=== PATIENT | male | born 1955 | race Caucasian/White ===

== ENCOUNTER 2017-12-20 09:47 | Inpatient (IN) | payer OTHER ==
[~2017-12-20] VITALS: Ht 177.8 cm; Wt 79.4 kg
[2017-12-20] VITALS (11 sets, daily range): BP systolic 128–151; BP diastolic 68–90; PULSE 52–80; RESP 16–20; TEMP 98–98.3; O2SAT 97–98
[~2017-12-20 09:47] MED LIST: CHOLESTEROL PILL; ENAL5TAB98 PO; NAPR550 PO; [UNRECOGNIZED DRUG - REMARK]
[2017-12-20] MEDS ORDERED: SODIUM CHLORIDE 0.9% FLUSH 10 ML FLUSH IVF PRN (10:30)
[2017-12-20 10:59] LABS: AUTOMATED NEUTROPHIL # 4.3 TH/MM3 (1.8-7.7); BASOPHIL % 0.7 % (0.0-2.0); EOSINOPHIL # 0.1 TH/MM3 (0-0.4); EOSINOPHIL % 1.9 % (0.0-4.0); HEMATOCRIT 37.8 % (39.0-51.0); HEMOGLOBIN 12.6 GM/DL (13.0-17.0); LYMPH % 16.5 % (9.0-44.0); MEAN CELL VOLUME 97.5 FL (80.0-100.0); MEAN CORPUSCULAR HEMOGLOBIN 32.6 PG (27.0-34.0); MEAN CORPUSCULAR HGB CONC 33.4 % (32.0-36.0); MEAN PLATELET VOLUME 8.5 FL (7.0-11.0); MONO % 9.3 % (0.0-8.0); MONOCYTE # 0.5 TH/MM3 (0-0.9); NEUT % 71.6 % (16.0-70.0); PLATELET COUNT 165 TH/MM3 (150-450); RED BLOOD COUNT 3.88 MIL/MM3 (4.50-5.90); RED CELL DISTRIBUTION WIDTH 13.6 % (11.6-17.2); WHITE BLOOD COUNT 5.9 TH/MM3 (4.0-11.0)
[2017-12-20] MEDS ORDERED: D-20TAB3 PO (11:02)
[2017-12-20] MEDS ORDERED: METO25TA3 PO (11:02)
[2017-12-20] MEDS ORDERED: ENTE1TAB PO (11:02)
[2017-12-20] MEDS ORDERED: LISI-519 PO (11:02)
[2017-12-20] MEDS ORDERED: SIMV40TA PO (11:02)
[2017-12-20 11:08] LABS: PROTHROMBIN TIME - PATIENT 10.4 SEC (9.8-11.6)
--- NOTE | 2017-12-20 11:24 | RADRPT ---
EXAM DATE/TIME: 12/20/2017 10:33 [place] COMPARISON: No previous studies available for comparison. INDICATIONS : Short of breath with chest pressure and pain mid sternal. MEDICAL HISTORY : Myocardial infarction. SURGICAL HISTORY : None. ENCOUNTER: Initial ACUITY: 1 day PAIN SCORE: 5/10 LOCATION: Bilateral chest FINDINGS: A single view of the chest demonstrates the lungs to be symmetrically aerated with bibasilar atelecta sis/mild airspace disease. No large effusion. Heart size is borderline prominent but well compensated . Osseous structures are intact with a mild dextroscoliosis of the thoracolumbar spine. There appears be widening of the AC joints bilaterally CONCLUSION: 1. Mild bibasilar atelectatic changes/early infiltrates. 2. Compensated cardiomegaly. 3. Widening of the a.c. joints bilaterally. Jaron Mejia MD on December 20, 2017 at 11:19 Board Certified Radiologist. This report was verified electronically.
[2017-12-20 11:26] LABS: ALBUMIN 3.4 GM/DL (3.4-5.0); ALT (GPT) 26 U/L (12-78); AST (GOT) 22 U/L (15-37); BICARBONATE 24.3 MEQ/L (21.0-32.0); BLOOD UREA NITROGEN 30 MG/DL (7-18); CALCIUM 8.6 MG/DL (8.5-10.1); CHLORIDE 111 MEQ/L (98-107); CREATININE 1.57 MG/DL (0.60-1.30); GLOMERULAR FILTRATION RATE 45 ML/MIN (>89); GLUCOSE,RANDOM 84 MG/DL (74-106); MAGNESIUM 2.2 MG/DL (1.5-2.5); SODIUM (NA) 142 MEQ/L (136-145)
[2017-12-20 11:30] LABS: ALKALINE PHOSPHATASE 47 U/L (45-117); TOTAL BILIRUBIN ADULT 0.5 MG/DL (0.2-1.0); TOTAL PROTEIN 6.9 GM/DL (6.4-8.2); TROPONIN I 0.07 NG/ML (0.02-0.05)
[2017-12-20] MEDS ORDERED: NITROGLYCERIN 2% OINT 1 GM PACKET TOP ONE (12:45)
--- NOTE | 2017-12-20 13:06 | PD ---
HPI Chief Complaint: Chest Pain Time Seen by Provider: 10:26 Travel History International Travel<30 days: No Contact w/Intl Traveler<30days: No Traveled to known affect area: No History of Present Illness HPI Patient presents to the emergency department with chest pain. Sent by the [place] via EMS as patient presented to clinic after riding his bike and had chest pain. He received 325 mg of aspirin and 1 nitroglycerin prior to ER arrival. Chest pains describes been intermittent 1 week, shortness of breath chest pain , aggravated by exertion, sternal area, nonradiating, variable duration, but no chest pain now. He denies fever, chills, vomiting, LE edema, recent travel, but reports nausea. PFSH Past Medical History Arthritis: No Asthma: No Anxiety: No Depression: No Heart Rhythm Problems: No Cardiac Catheterization: Yes Cardiovascular Problems: Yes High Cholesterol: Yes Chest Pain: Yes Congestive Heart Failure: No COPD: No Cerebrovascular Accident: No Coronary Artery Disease: Yes Diabetes: No Diminished Hearing: No Endocrine: No Gastrointestinal Disorders: Yes (POLYP IN COLON) GERD: Yes Genitourinary: Yes (CHRONIC KIDNEY DISEASE) Headaches: No Hepatitis: Yes (B AND C) Hiatal Hernia: No Hypertension: Yes Immune Disorder: No Kidney Stones: No Medical other: Yes (HYPERCALCEMIA/HX: ETOH ABUSE ) Musculoskeletal: No Neurologic: No Psychiatric: No Reproductive: No Respiratory: No Immunizations Current: No Migraines: No Myocardial Infarction: Yes (01/2004) Renal Failure: No Seizures: No Sleep Apnea: No Thyroid Disease: No Ulcer: No Tetanus Vaccination: > 5 Years Influenza Vaccination: Yes ?: Not Past Surgical History Abdominal Surgery: No Appendectomy: No Cardiac Surgery: Yes (CARDIAC STENT) Cholecystectomy: No Coronary Stent: Yes (x 1) Ear Surgery: No Endocrine Surgery: No Eye Surgery: No Genitourinary Surgery: No Gynecologic Surgery: No Oral Surgery: No Thoracic Surgery: No Social History Alcohol Use: No (last drink 2003) Tobacco Use: Yes (1/2 PPD) Substance Use: No Allergies-Medications (Allergen,Severity, Reaction): Coded Allergies: No Known Allergies (Verified Adverse Reaction, Unknown, 12/20/17) Reported Meds & Prescriptions Reported Meds & Active Scripts Active Reported D-2000 Maximum Strength (Cholecalciferol) 2,000 Unit Tab 2,000 Units PO DAILY Lisinopril 5 Mg Tab 5 Mg PO DAILY Metoprolol Tartrate 25 Mg Tab 25 Mg PO Q12HR Simvastatin 40 Mg Tab 40 Mg PO HS Entecavir 0.5 Mg Tab 0.5 Mg PO DAILY Review of Systems Except as stated in HPI: all other systems reviewed are Neg Physical Exam Narrative GENERAL: No acute distress. SKIN: Focused skin assessment warm/dry. HEAD: Atraumatic. Normocephalic. EYES: Extraocular muscles intact bilaterally. No injection or drainage. ENT: No nasal bleeding or discharge. Mucous membranes pink and moist. NECK: Trachea midline. No JVD. CARDIOVASCULAR: Regular rate and rhythm. No murmur appreciated. RESPIRATORY: No accessory muscle use. Clear to auscultation. Breath sounds equal bilaterally. GASTROINTESTINAL: Abdomen soft, non-tender, nondistended. Hepatic and splenic margins not palpable. MUSCULOSKELETAL: No obvious deformities. No clubbing. No cyanosis. No edema. NEUROLOGICAL: Awake and alert. No obvious cranial nerve deficits. Motor grossly within normal limits. Normal speech. PSYCHIATRIC: Appropriate mood and affect; insight and judgment normal. Data Data Last Documented VS Vital Signs Date Time Temp Pulse Resp B/P (MAP) Pulse Ox O2 Delivery O2 Flow Rate FiO2 12/20/17 10:54 63 16 128/78 (95) 98 Room Air 12/20/17 10:03 2.00 12/20/17 10:03 98.3 Orders Orders Electrocardiogram (12/20/17 10:26) B-Type Natriuretic Peptide (12/20/17 10:26) Ckmb (Isoenzyme) Profile (12/20/17 10:26) Complete Blood Count With Diff (12/20/17 10:26) Comprehensive Metabolic Panel (12/20/17 10:26) Magnesium (Mg) (12/20/17 10:26) Prothrombin Time / Inr (Pt) (12/20/17 10:26) Act Partial Throm Time (Ptt) (12/20/17 10:26) Troponin I (12/20/17 10:26) Ecg Monitoring (12/20/17 10:26) Bilateral Bp Monitoring (12/20/17 10:26) Iv Access Insert/Monitor (12/20/17 10:26) Oximetry (12/20/17 10:26) Oxygen Administration (12/20/17 10:26) Sodium Chloride 0.9% Flush (Ns Flush) (12/20/17 10:30) Chest, Single Ap (12/20/17 10:26) CKMB (12/20/17 10:00) CKMB% (12/20/17 10:00) Nitroglycerin 2% Oint (Nitroglycerin 2% (12/20/17 12:45) Consult Cardiology (12/20/17 ) Admit Order (Ed Use Only) (12/20/17 13:17) Labs Laboratory Tests Test 12/20/17 10:00 White Blood Count 5.9 TH/MM3 Red Blood Count 3.88 MIL/MM3 Hemoglobin 12.6 GM/DL Hematocrit 37.8 % Mean Corpuscular Volume 97.5 FL Mean Corpuscular Hemoglobin 32.6 PG Mean Corpuscular Hemoglobin Concent 33.4 % Red Cell Distribution Width 13.6 % Platelet Count 165 TH/MM3 Mean Platelet Volume 8.5 FL Neutrophils (%) (Auto) 71.6 % Lymphocytes (%) (Auto) 16.5 % Monocytes (%) (Auto) 9.3 % Eosinophils (%) (Auto) 1.9 % Basophils (%) (Auto) 0.7 % Neutrophils # (Auto) 4.3 TH/MM3 Lymphocytes # (Auto) 1.0 TH/MM3 Monocytes # (Auto) 0.5 TH/MM3 Eosinophils # (Auto) 0.1 TH/MM3 Basophils # (Auto) 0.0 TH/MM3 CBC Comment DIFF FINAL Differential Comment Prothrombin Time 10.4 SEC Prothromb Time International Ratio 1.0 RATIO Activated Partial Thromboplast Time 24.7 SEC Blood Urea Nitrogen 30 MG/DL Creatinine 1.57 MG/DL Random Glucose 84 MG/DL Total Protein 6.9 GM/DL Albumin 3.4 GM/DL Calcium Level 8.6 MG/DL Magnesium Level 2.2 MG/DL Alkaline Phosphatase 47 U/L Aspartate Amino Transf (AST/SGOT) 22 U/L Alanine Aminotransferase (ALT/SGPT) 26 U/L Total Bilirubin 0.5 MG/DL Sodium Level 142 MEQ/L Potassium Level 4.3 MEQ/L Chloride Level 111 MEQ/L Carbon Dioxide Level 24.3 MEQ/L Anion Gap 7 MEQ/L Estimat Glomerular Filtration Rate 45 ML/MIN Total Creatine Kinase 129 U/L Creatine Kinase MB 2.9 NG/ML Troponin I 0.07 NG/ML B-Type Natriuretic Peptide 378 PG/ML MDM Medical Decision Making Medical Screen Exam Complete: Yes Emergency Medical Condition: Yes Interpretation(s) EKG: Rate 60, left axis deviation, PVCs, ST depression in lead I, aVL, V5; slight ST elevation in 3 and aVF labs: CBC-hematocrit slightly decreased; chemistry-creatinine increased, BNP and troponin increased Last Impressions Chest X-Ray 12/20/17 1026 Signed Impressions: Service Date/Time: , December 20, 2017 10:33 - CONCLUSION: 1. Mild bibasilar atelectatic changes/early infiltrates. 2. Compensated cardiomegaly. 3. Widening of the a.c. joints bilaterally. Jaron Mejia MD Differential Diagnosis CHF exacerbation, ACS, musculoskeletal chest pain Narrative Course Patient presents to the emergency department for chest pain that is relieved upon ER presentation. He was given aspirin and nitroglycerin prior to arrival. Will get chest x-ray, EKG, and labs. 1230: Elevated troponin and creatinine. 1245: Spoke to Dr. Shore, cardiology on-call, who advised to keep the patient n.p.o., place 2 inches of nitro to chest wall, place a cards consult, and he will take to phlebotomy lab assistant today. Patient continues to be chest pain-free in the emergency department. Physician Communication Physician Communication Spoke to Dr. Shore. Advised that he will cath patient today. Requested that I keep patient n.p.o., give 2 inches of nitro to the chest wall, and placed formal cardiology consult. Diagnosis Primary Impression: Non-STEMI (non-ST elevated myocardial infarction) Admitting Information Admitting Physician Requests: Admit Condition: Stable Tana Flores MD December 20, 2017 13:06
--- NOTE | 2017-12-20 13:53 | HHI.HP ---
[facility] Admission Diagnosis nstemi Diagnoses: Chief Complaint: chest pain Travel History International Travel<30 Days: No Contact w/Intl Traveler <30 Da: No Traveled to Known Affected Are: No History of Present Illness This is a 62-year-old male with history of coronary artery disease status post previous [place] presenting with chest pain. Allegedly, chest pain has been going on for about 1-1/2 weeks, described as exertional, especially happens when he is riding a bicycle, described as pressure-like, nonradiating and associated with mild shortness of breath. He called his primary care doctor's office this morning to schedule an appointment with his physician, the office told him to go to the emergency department instead. He denies any nausea, vomiting, cough, fever or chills. Presently, he is chest pain-free. Review of Systems ROS Limitations: Other (All other pertinent systems were reviewed and are negative.) Past Family Social History Past Medical History CAD, s/p [place] and PCI 2003 Hepatitis C Hepatitis B HTN Past Surgical History Cardiac catheterization Reported Medications D-2000 Maximum Strength (Cholecalciferol) 2,000 Unit Tab 2,000 Units PO DAILY Lisinopril 5 Mg Tab 5 Mg PO DAILY Metoprolol Tartrate 25 Mg Tab 25 Mg PO Q12HR Simvastatin 40 Mg Tab 40 Mg PO HS Entecavir 0.5 Mg Tab 0.5 Mg PO DAILY Allergies: Coded Allergies: No Known Allergies (Verified Allergy, Unknown, 12/20/17) Family History No history of cardiac problems in the family. Social History 1/2 ppd x 40 years Stopped drinking alcohol since 2003 Physical Exam Vital Signs Vital Signs Date Time Temp Pulse Resp B/P (MAP) Pulse Ox O2 Delivery O2 Flow Rate FiO2 12/20/17 13:00 64 16 134/79 (97) 97 Nasal Cannula 2.00 12/20/17 12:00 59 16 139/81 (100) 98 Nasal Cannula 2.00 12/20/17 11:30 62 18 129/72 (91) 97 Room Air 2.00 12/20/17 10:54 63 16 128/78 (95) 98 Room Air 12/20/17 10:53 63 128/78 (95) 12/20/17 10:03 64 137/87 (104) 12/20/17 10:03 98 Nasal Cannula 2.00 12/20/17 10:03 98.3 62 17 137/87 (104) 97 12/20/17 10:03 98 Room Air Physical Exam Not in distress, well-nourished, looks stated age PERRL, pink conjunctiva without injection, anicteric Nose without bleeding Supple neck Normal rate and regular rhythm, no murmurs gallops or rubs appreciated. Clear to auscultation and symmetric bilaterally, normal respiratory effort. Normal bowel sounds, soft, non-tender, nondistended, no guarding. Extremities without clubbing, cyanosis, or edema. No rash of generalized distribution. Skin is warm and dry. Petechial rash both anterior tibial area. AAO x3, no cranial nerve deficits, moves all 4 extremities, no focal neurologic deficits Laboratory Laboratory Tests Test 12/20/17 10:00 White Blood Count 5.9 Red Blood Count 3.88 Hemoglobin 12.6 Hematocrit 37.8 Mean Corpuscular Volume 97.5 Mean Corpuscular Hemoglobin 32.6 Mean Corpuscular Hemoglobin Concent 33.4 Red Cell Distribution Width 13.6 Platelet Count 165 Mean Platelet Volume 8.5 Neutrophils (%) (Auto) 71.6 Lymphocytes (%) (Auto) 16.5 Monocytes (%) (Auto) 9.3 Eosinophils (%) (Auto) 1.9 Basophils (%) (Auto) 0.7 Neutrophils # (Auto) 4.3 Lymphocytes # (Auto) 1.0 Monocytes # (Auto) 0.5 Eosinophils # (Auto) 0.1 Basophils # (Auto) 0.0 CBC Comment DIFF FINAL Differential Comment Prothrombin Time 10.4 Prothromb Time International Ratio 1.0 Activated Partial Thromboplast Time 24.7 Blood Urea Nitrogen 30 Creatinine 1.57 Random Glucose 84 Total Protein 6.9 Albumin 3.4 Calcium Level 8.6 Magnesium Level 2.2 Alkaline Phosphatase 47 Aspartate Amino Transf (AST/SGOT) 22 Alanine Aminotransferase (ALT/SGPT) 26 Total Bilirubin 0.5 Sodium Level 142 Potassium Level 4.3 Chloride Level 111 Carbon Dioxide Level 24.3 Anion Gap 7 Estimat Glomerular Filtration Rate 45 Total Creatine Kinase 129 Creatine Kinase MB 2.9 Troponin I 0.07 B-Type Natriuretic Peptide 378 Result Diagram: 12/20/17 1000 12/20/17 1000 Imaging Last Impressions Chest X-Ray 12/20/17 1026 Signed Impressions: Service Date/Time: December 10:33 - CONCLUSION: 1. Mild bibasilar atelectatic changes/early infiltrates. 2. Compensated cardiomegaly. 3. Widening of the a.c. joints bilaterally. MD Micah Huynh VTE Risk Assessment Micah VTE Risk Assessment: Mod/High Risk (score >= 2) Caprini Risk Assessment Model Point Value = 1 Point Value = 2 Point Value = 3 Point Value = 5 Age 41-60 Minor surgery BMI > 25 kg/m2 Swollen legs Varicose veins or History of unexplained or recurrent spontaneous Oral contraceptives or hormone replacement Sepsis (< 1 month) Serious lung disease, including pneumonia (< 1 month) Abnormal pulmonary function Acute myocardial infarction Congestive heart failure (< 1 month) History of inflammatory bowel disease Medical patient at bed rest Age 61-74 Arthroscopic surgery Major open surgery (> 45 min) Laparoscopic surgery (> 45 min) Malignancy Confined to bed (> 72 hours) Immobilizing plaster cast Central venous access Age >= 75 History of VTE Family history of VTE Factor V Leiden Prothrombin [id number] Lupus anticoagulant Anticardiolipin antibodies Elevated serum homocysteine Heparin-induced thrombocytopenia Other congenital or acquired thrombophilia Stroke (< 1 month) Elective arthroplasty Hip, pelvis, or leg fracture Acute spinal cord injury (< 1 month) Prophylaxis Regimen Total Risk Factor Score Risk Level Prophylaxis Regimen 0-1 Low Early ambulation 2 Moderate Order ONE of the following: *Sequential Compression Device (SCD) *Heparin 5000 units SQ BID 3-4 Higher Order ONE of the following medications: *Heparin 5000 units SQ TID *Enoxaparin/Lovenox 40 mg SQ daily (WT < 150 kg, CrCl > 30 mL/min) *Enoxaparin/Lovenox 30 mg SQ daily (WT < 150 kg, CrCl > 10-29 mL/min) *Enoxaparin/Lovenox 30 mg SQ BID (WT < 150 kg, CrCl > 30 mL/min) AND/OR *Sequential Compression Device (SCD) 5 or more Highest Order ONE of the following medications: *Heparin 5000 units SQ TID (Preferred with Epidurals) *Enoxaparin/Lovenox 40 mg SQ daily (WT < 150 kg, CrCl > 30 mL/min) *Enoxaparin/Lovenox 30 mg SQ daily (WT < 150 kg, CrCl > 10-29 mL/min) *Enoxaparin/Lovenox 30 mg SQ BID (WT < 150 kg, CrCl > 30 mL/min) AND *Sequential Compression Device (SCD) Assessment and Plan Assessment and Plan This is a 62-year-old male with history of coronary artery disease status post [place] and cardiac catheterization presenting with chest pain Chest pain, non-ST elevated myocardial infarction-EKG reviewed, showed ST depressions in the lateral leads, troponin is mildly elevated at 0.07. Cardiology consulted, for cardiac catheterization today, keep n.p.o. continue metoprolol, simvastatin. Hepatitis B - cont entecavir Hypertension-continue metoprolol and lisinopril Acute versus chronic renal failure-recheck BMP tomorrow, no previous BMP in the last 10 years. Start IVF. DVT prophylaxis: Lovenox Physician Certification 2 Midnight Certification Type: Admission for Inpatient Services Order for Inpatient Services The services are ordered in accordance with Medicare regulations or non- Medicare payer requirements, as applicable. In the case of services not specified as inpatient-only, they are appropriately provided as inpatient services in accordance with the 2-midnight benchmark. Estimated LOS (days): 2 days is the estimated time the patient will need to remain in the hospital, assuming treatment plan goals are met and no additional complications. Post-Hospital Plan: Home Amor Guaman MD December 20, 2017 13:52
[2017-12-20] MEDS ORDERED: BISACODYL 10 MG SUPP RECTAL PRN (14:00)
[2017-12-20] MEDS ORDERED: MAGNESIUM HYDROXIDE SUSP 30 ML CUP PO PRN (14:00)
[2017-12-20] MEDS ORDERED: NALOXONE HCL 0.4 MG/ML AMP IV PUSH PRN (14:00)
[2017-12-20] MEDS ORDERED: SODIUM CHLORIDE 0.9% FLUSH 10 ML FLUSH IV FLUSH PRN ×3 (14:00→22:30)
[2017-12-20] MEDS ORDERED: ACETAMINOPHEN 325 MG TAB PO PRN (14:00)
[2017-12-20] MEDS ORDERED: SENNOSIDES 8.6 MG TAB PO PRN (14:00)
[2017-12-20] MEDS ORDERED: LACTULOSE SYRUP 20 GM/30 ML CUP PO PRN (14:00)
[2017-12-20] MEDS: SODIUM CHLOR 0.9% 1000 ML INJ 1,000 ML IV SCH ×2 (16:19→20:47)
[2017-12-20] MEDS ORDERED: HEPARIN-NS/PF FLUSH BAG 1,000 ML IV FLUSH ONE (17:42)
[2017-12-20] MEDS ORDERED: MIDAZOLAM HCL 2 MG/2 ML VIAL ONE (17:50)
[2017-12-20] MEDS ORDERED: MISC INFORMATION XX ONE (18:30)
[2017-12-20] MEDS ORDERED: BACITRACIN OINT 0.9 GM PKT TOP ONE (18:30)
--- NOTE | 2017-12-20 18:42 | CATHPROC ---
[facility] HIS Report Study Information Study Number Admission Scheduled Start Study Start [id number] Dec 20 2017 1:20PM 12/20/2017 Dec 20 2017 5:33PM [place] Service Cardiac Catheterization Admit Source Facility Department Emergency department [facility] - [facility] Operator Physician and Clinical Staff Initial Alex Dan Can Feeder Megan Merritt,RN Recorder America Mcnamara BSN Scrub Hostsophia, Dennis,RT(R) Procedures Performed Procedure Location (Site) Vessel Name Coronary Angiograms LCA Left Coronary Coronary Angiograms RCA Right Coronary LV Gram-hand inj. LV LV Ventricle Equipment Time Lens Blank Gauger Description Size Mfg Part Number Used/Scraped CATHETER, FR5 SWAN VASQUEZ 17:51 [employer] FR 5 [id number] *[id number] Used MONITOR TRANSDUCER, TRUWAVE [id number] 17:51 KING M[employer]ER * Used W/STOCKCOCK *[id number] [id number] *[id number] [id number] *[id number] 17:51 [employer] PACK, CCL CUSTOM * Used *[id number] 17:51 [employer] PACER PEN, SKIN DUAL W/ RULER * Used *[id number] 17:51 [employer] MEDICAL SHEATH, FR5.5 PRELUDE 11CM FR 5.5 Used 038ACT# [id number] 17:51 [employer] MEDICAL WIRE, 3MMJ .035 180CM 180CM Used *[id number] 17:51 NAMIC MANIFOLD, 4 PORT * Used *[id number] 17:51 NYCOMED OMNIPAQUE, 350 MG, 150ML 150ML [id number] Used [id number] 17:51 [employer] BLANKET,WARM AIR CCL * Used *[id number] 17:51 TERUMO MEDICAL SHEATH, FR4 TERUMO (10CM) FR 4 Used *[id number] 17:57 TERUMO MEDICAL SHEATH, FR5 TERUMO (10CM) FR 5 Used *[id number] History: Current Medications Medication Dosage/Unit Route Frequency Last Date/Time Taken ASA 325 mg 12/20/2017 Beta Yong History: Allergies Allergy Reaction No Known Allergies History: Risk Factors Family History of Hypertension Dyslipidemia Previous LA Previous Heart Failure Premature CAD Yes Yes Yes Yes No Prior Valve Prior PCI Prior PCIDate Prior CABG Surgery No Yes 01/12/2004 No Cerebrovascular Peripheral Artery Chronic Lung On Dialysis Diabetes Disease Disease Disease No No No No No History: Symptoms/Diagnosis Selection Items Chest pain History: Stress Tests Stress or Imaging Studies Performed No History: LA/CV Data Previous Cath Date 01/12/2004 History: Other Current Smoker Method Packs a Day Years Used Pack Years Yes Cigarettes 1 30 30 Labs Hgb (g/dl) Hct (%) WBC (l/cumm) Platelets (thousands) 11.60-17.00 35.00-51.00 4.00-11.00 150.00-450.00 12.6 37.8 5.9 378 Glucose (mg/dl) BUN (mg/dl) Creatinine (mg/dl) BUN:Creatinine (1:x) 74.00-106.00 7.00-18.00 0.50-1.30 10.00-20.00 84 30 1.5 20 Na (meq/l) K (meq/l) 136.00-145.00 3.50-5.10 142 4.3 INR (PTT:PT) 0.90-1.10 1 Troponin I (ng/ml) CPK (u/l) CPK-MB (ng/ML) 0.02-0.05 26.00-308.00 0.50-3.60 0.09 129 2.9 Medication Medication Total Dose (Bolus/Oral) Medication Total Dosage/Unit 1% XYLOCAINE 20 mL Medications (Bolus/Oral) Medication Time Given Dosage/Unit Administered By Reason 1% XYLOCAINE 12/20/2017 5:59:12 PM 20 mL Alex Shore 20 mL 1% XYLOCAINE given in lab by Alex Shore in Right Groin via Subcutaneous. Medication (Drip) Medication Time Given Dosage/Unit Concentration/Unit Diluent (ml) Solution IV Solutions 12/20/2017 5:34:11 PM 50 mL (IV) NaCl .9 IV Solutions given in lab by America Mcnamara BSN via Peripheral IV. Pump/Drip Flow using NaCl .9 . Ordered by Aelx Shore. at [facility] Initial Case Assessment Cardiovascular HR Rhythm NIBP Chest Pain 57 sb 138/89 0 Edema Present Skin color Skin None Normal Warm Dry Circulatory - Right Pulses Dorsalis Pedis Femoral 1 2 Scale (0,1,2,3,4,d) Circulatory - Left Pulses Dorsalis Pedis Femoral 1 2 Scale (0,1,2,3,4,d) Circulatory - Lower Extremities Color Lower Right Color Lower Left Normal Normal Neurological State Oriented to time-place- Alert Moves all extremities person Respiration - General Respiration Rate SpO2 (%) (B/min) 13 98 Chronological Log Time Study Chronological Log 17:32:54 Patient arrived via Bed. 17:32:55 Patient Name, D.O.B, / Armband Verified By R.N. 17:32:56 Consent signed by the physician and the patient and verified by the [employer] staff. 17:33:23 Pre-op and post- op instructions given; patient acknowledges understanding of instructions. 17:33:27 Patient has been NPO for More than 6Hrs. 17:33:28 Skin Breakdown- none per patient 17:33:59 A # 20 IV was noted in the Antecubital (right). Grade = 0 17:34:07 History and physical on the chart or being dictated. IV Solutions given in lab by America Mcnamara BSN via Peripheral IV. Pump/Drip Flow using N aCl .9. Ordered by 17:34:11 Alex Shore. at [facility] Vitals capture started with the following parameters, Patient=Adult, Interval=5 min, Initial Pr fyubfx=292 mmHg, 17:46:11 Deflation Rate=5 mmHg, Cuff placed on Left Arm 17:47:23 HR=59 bpm, QHCQ=815/89 mmhg, QtB0=278.0 %, Resp=10 B/min, Pain=0, Melania=10, Bell=2 Assessment: Initial Case, HR=57 BPM, Rhythm=sb, TISP=849/89 mmhg, Chest Pain=0, Edema=None, Col or=Normal, Skin = Warm, Dry Right Pulses: Edis Ped=1, Femoral=2 Left Pulses: Edis Ped=1, Femoral=2 17:48:26 Lower Right Extremities: Color=Normal Lower Left Extremities: Color=Normal Neurological: State=Alert, Ox3, HOPE Respiration: Resp=13 B/min, SpO2=98 % 17:50:57 Bilateral groins prepped with 2% chlorhexidine, and draped after a 3 minute waiting time. 17:51:49 HR=59 bpm, PPJX=873/87 mmhg, SpO2=97.0 %, Resp=15 B/min, Pain=0, Melania=10, Bell=2 17:53:10 MD paged 17:54:05 MD responded 17:55:06 MD arrived. 17:56:52 HR=60 bpm, CFJO=805/87 mmhg, SpO2=98.0 %, Resp=15 B/min, Pain=0, Melania=10, Bell=2 Time Out. Correct patient, correct procedure, correct physician, power injector loaded, or not loaded with contrast with 17:58:37 surgical team present. Time Out Concurred by MD and individual staff in procedure. 17:58:45 Case Start 17:58:58 Reference ECG taken 17:59:12 20 mL 1% XYLOCAINE given in lab by Alex Shore in Right Groin via Subcutaneous. 18:00:10 Access site was Right Femoral Vein. 18:00:21 Pressure channel 1 zeroed. 18:00:41 A SHEATH, FR5.5 PRELUDE 11CM FR 5.5 was advanced into the Fem Vein (right) using the Percut aneous technique. 18:01:21 Saturation: Site=FA (Femoral Artery) , O2=95 %, Hgb=12.6 gm/dl, Condition=Condition 1. Used in calculation. 18:01:55 HR=67 bpm, QNQC=763/85 mmhg, SpO2=98.0 %, Resp=12 B/min 18:02:02 A CATHETER, FR5 SWAN VASQUEZ MONITOR FR 5 was inserted via Fem Vein (right) Recorded Pressure: PCW, HR=35, Condition=Condition 1 18:02:29 (Pulmonary Capillary Wedge) PCW 2018 Recorded Pressure: MPA, HR=63, Condition=Condition 1 18:02:51 (Main Pulmonary Artery) MPA 4318/30 18:03:19 Saturation: Site=PA (Pulmonary Artery) , O2=67.7 %, Hgb=12.6 gm/dl, Condition=Condition 1. Used in calculation. Recorded Pressure: RV, HR=89, Condition=Condition 1 18:03:53 (Right Ventricle) RV 47/10/16 Recorded Pressure: RA, HR=66, Condition=Condition 1 18:04:04 (Right Atrium) RA 05/19/6 18:04:15 Saturation: Site=RA (Right Atrium) , O2=69.3 %, Hgb=12.6 gm/dl, Condition=Condition 1. Used in calculation. 18:05:40 Tutor Key Vasquez Catheter Removed A JR 4.0 INFINITI CATHETER FR 4 was advanced over a wire. OMNIPAQUE, 350 MG, 150ML 150ML was us ed for 18:05:42 injections. Recorded Pressure: LV, UF=863, Condition=Condition 1 18:06:03 (Left Ventricle) LV 137/11/37 Recorded Pressure: LV, Ao, HR=74, Condition=Condition 1 18:06:27 (Left Ventricle) LV 147/10/22, (Aorta) Ao 134/80/105 18:06:35 The LV was manually injected with 10 cc's and visualized. OMNIPAQUE, 350 MG, 150ML 150ML us ed. 18:06:56 CP=452 bpm, MFGP=123/79 mmhg, SpO2=95.0 %, Resp=10 B/min, Pain=0, Melania=10, Bell=2 18:07:07 The RCA was injected and visualized at various angles. OMNIPAQUE, 350 MG, 150ML 150ML used . After removing the current catheter a JL 4.0 INFINITI CATHETER FR 4 was advanced over a WIRE, 3 MMJ .035 180CM 18:08:42 180CM. 18:09:15 The LCA was injected and visualized at various angles. OMNIPAQUE, 350 MG, 150ML 150ML used . 18:11:53 HR=75 bpm, PZVE=186/96 mmhg, SpO2=97.0 %, Resp=16 B/min, Pain=0, Melania=10, Bell=2 18:11:58 Catheter was removed 18:13:46 Case End 18:15:40 Arterial sheath removed; pressure applied to access site. 18:16:54 HR=74 bpm, CHTI=833/95 mmhg, SpO2=95.0 %, Resp=16 B/min, Pain=0, Melania=10, Bell=2 18:21:55 HR=70 bpm, ZSPM=906/92 mmhg, SpO2=97.0 %, Resp=17 B/min, Pain=0, Melania=10, Bell=2 18:21:58 Venous Sheath removed; pressure applied to access site. 18:26:54 HR=68 bpm, CDJQ=595/92 mmhg, SpO2=96.0 %, Resp=13 B/min, Pain=0, Melania=10, Bell=2 18:31:43 Sterile dressing applied to site 18:31:44 No case complications noted. 18:31:45 Cine recording checked. 18:31:48 Bedside Report will be given. 18:31:52 A Left and Right Heart Cath was performed. 18:31:55 HR=61 bpm, NJJQ=463/93 mmhg, SpO2=95.0 %, Resp=13 B/min, Pain=0, Melania=10, Bell=2 18:37:27 HR=65 bpm, HYGQ=805/97 mmhg, SpO2=98.0 %, Resp=14 B/min, Pain=0, Melania=10, Bell=2 18:40:59 CVICU called. Spoke to Ruth Ann 18:42:02 Vitals capture stopped. 18:42:59 Patient moved to [facility] End Study - Contrast Media Used In Study Contrast Total Opened (mL) Total Used (mL) Total Wasted (mL) Omnipaque 40 40 0 End Study - Maximum Contrast Load Max Contrast Load (mL) 266.7 End Study - Radiation Exposure Fluoro Time (minutes) 2.4 End Study - Sheaths Sheaths Pulled By Sheath Hold Time (min) Dennis Ellsworth 15 End Study - Patient Disposition Complications Transferred To Critical Care Bed
--- NOTE | 2017-12-20 18:56 | MR ---
cc: Alex Shore MD, Arthur W MD DATE: 12/20/2017 Right heart catheterization, left heart catheterization, left ventriculography, coronary angiography. INDICATIONS FOR PROCEDURE: Non-STEMI, congestive heart failure, coronary artery disease, pulmonary hypertension, chronic renal insufficiency, acute renal failure, decompensated congestive heart failure. PROCEDURAL STATEMENT: The patient was brought to the cardiac catheterization laboratory, prepped and draped in usual sterile fashion. 10 mL of 1% lidocaine was used to locally anesthetize the right common femoral artery. A 4-Stateless sheath placed in right common femoral artery, 5-1/2 Stateless sheath placed in the right common femoral vein. Right heart catheterization was performed first with the following findings: Pulmonary capillary wedge pressure 20/19/18, PA pressure 43/18/30, RV pressure 47/10/16. RA pressure 10/70/6. Sats on room air: Femoral artery sat 95%. PA sat 67.7%. RA sat 69.3%. By Jaun, cardiac output was 5.3 liters per minute, cardiac index is 2.7 liters mg/m2 per minute. SVR is 1497 dynes. Left heart catheterization was then performed with a 4-Stateless JL4 JR4 catheter with the following findings: The LV pressures 160/8/10. Ejection fraction 60%. The right coronary artery is dominant, has a proximal 60-70% stenosis. The mid to distal segment has a long 80% stenosis probably at least 40 mm in length. The stent in the ostial posterolateral artery is occluded at the ostium. The right posterior descending coronary artery has an ostial 50% stenosis. Reference vessel diameter is 3 mm in the proximal segment, approaches the apex in the distal segment. The left main coronary artery has a distal 60% to 70% stenosis. The ostium has a 30-40% stenosis. The left circumflex vessel has a long 80% stenosis in the proximal segment. First obtuse marginal vessel has a proximal 90% stenosis. Reference vessel diameter 2.5 mm. Second obtuse marginal vessel reference vessel diameter 2.5 millimeters and no significant disease. Distal left circ terminates into a very small 0.5 mm posterolateral artery with no significant disease angiographically. There is a ramus intermedius vessel which has a proximal 30-40% stenosis mid 80% stenosis. Reference vessel diameter is 3 mm. The LAD has a proximal 95% stenosis at a bifurcation with a small to medium size diagonal vessel which has a reference vessel diameter of 2.25 mm with an ostial 80% stenosis. Just beyond the first diagonal artery, the vessel is ectatic. In the mid segment, there is a long 90% stenosis at a bifurcation with a medium to large diagonal vessel. Reference vessel diameter of 2.75 mm with an ostial 60% stenosis. The LAD is transapical. LAD supplies left to right collaterals to the right posterolateral artery, which actually fills to a point at which the vessel bifurcates. There is no significant filling of the vessel proximal to the bifurcation, but both branches of the bifurcation fill with reference vessel diameters of 2.5 to 2.25 mm. CONCLUSION: 1. Severe left main and 3-vessel coronary artery disease in a right dominant system as detailed above. 2. Preserved left ventricular systolic function, ejection fraction 60-65%. 3. Moderate pulmonary hypertension as detailed above. 4. Cardiac index of 2.7 liters mg/m2 per minute. 5. Acute on chronic renal insufficiency. 6. Decompensated congestive heart failure. 7. I have discussed the case in detail with Dr. Monique Noguera. The patient is currently asymptomatic. He does appear to have good targets in all vascular distributions as detailed above. 8. Otherwise, we will treat lipids NCP guidelines. I am going to give the patient a liter of normal saline in the prosthetics lab technician, given his elevated. Put a consult in for CT surgery. We will start a heparin drip without a bolus 2 hours after the 4-Stateless sheath is out. he currently has decompensated congestive heart failure and acute renal failure. Therefore, beta blockers and angiotensin cardioverting enzyme inhibitors are relatively contraindicated. We will also continue aspirin. MD SAVANNAH Jean/ , 06:25 PM , 06:55 PM
[2017-12-20] MEDS ORDERED: ASPIRIN EC 81 MG TABEC PO ONE (19:30)
[2017-12-20] MEDS ORDERED: HEPARIN 25,000 UNITS-D5W 250 ML - PREMIX IV PRN (19:30)
--- NOTE | 2017-12-20 20:38 | EKG ---
Date Performed: 12/20/2017 Time Performed: 09:58:09 PTAGE: 62 years EKG: Sinus rhythm WITH OCCASIONAL VENTRICULAR PREMATURE COMPLEXES BORDERLINE LEFT AXIS DEVIATION MODERATE INTRAVENTRIC ULAR CONDUCTION DELAY MODERATE ST DEPRESSION ABNORMAL ECG NO PREVIOUS TRACING DOCTOR: Ariel Goldberg Interpretating Date/Time 12/20/2017 20:37:41
--- NOTE | 2017-12-20 20:42 | MB ---
cc: Alex Shore MD, Arthur W MD DATE: 12/20/2017 HISTORY OF PRESENT ILLNESS: Leonard is a very pleasant 62-year-old gentleman who underwent stent placement in 2003. He is followed at the [facility]. 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 Also admits to chest pain. Currently in the ER no acute distress. Denies chest pain currently. Otherwise, denies any fevers, chills, cough, GI, bleeding, PND, orthopnea, syncope or dizziness. PAST MEDICAL HISTORY: Per history of present illness. He has a history of hyperlipidemia, colonic polyp, chronic renal insufficiency, hepatitis B and C, hypertension, hypercalcemia, myocardial infarction in 2003. SOCIAL HISTORY: Smokes half pack of cigarettes a day. Denies alcohol use. ALLERGIES: NONE. MEDICATIONS PRIOR TO ADMISSION: 1. Lisinopril 5 mg daily. 2. Metoprolol 25 mg q. 12 hrs 3. Simvastatin 40 mg at bedtime. 4. Entecavir 0.5 mg daily. 5. D 2000 maximum strength. MEDICATIONS IN THE HOSPITAL: 1. Entecavir 0.5 mg daily. 2. Lisinopril 5 mg daily. 3. Nitro paste 2 inches q. 8 hours. 4. Pravastatin 80 mg at bedtime. 5. Metoprolol 25 mg q. 12 hours. PHYSICAL EXAMINATION: VITAL SIGNS: Blood pressure 129/72, pulse 62, respiratory rate 18, temperature 98.3. GENERAL: He is alert and oriented x 3 in no acute distress. NECK: Supple. No JVD. No bruit. CARDIOVASCULAR: S1, S2. No murmurs, rubs, gallops. LUNGS: Clear to auscultation bilaterally. ABDOMEN: Soft, nontender, nondistended with positive bowel sounds. EXTREMITIES: No lower extremity edema. IMAGING STUDIES: Chest x-ray shows mild bibasilar atelectatic changes/early infiltrates, compensated cardiomegaly with widening of the AC joints bilaterally. CARDIOLOGY STUDIES EKG: Normal sinus rhythm at 60 beats per minute, PVCs, QRS duration of 114 milliseconds. LABORATORY DATA: White count 5.9, hemoglobin 12.6, hematocrit 37.8, platelet count 165. INR is 1.0. Sodium 142, potassium 4.3, chloride 101, bicarbonate 24.3, BUN 30, creatinine 1.57. LFTs normal. Troponin 0.07 followed by 0.09. BNP is 378. DIAGNOSES: 1. Non-ST elevation myocardial infarction. 2. Decompensated congestive heart failure. 3. Chronic renal insufficiency. 4. Hepatitis C with normal liver enzymes. 5. Anemia. 6. Tobacco abuse. DISCUSSION: At this point in time, I do think the patient needs a urgent left heart catheterization. We will also add aspirin 81 mg daily. Continue nitro paste and Lopressor. SVETLANA inhibitor held due to chronic renal insufficiency and also we will continue Pravachol. MD SAVANNAH Jean//zhen , 07:29 PM , 08:19 PM
[2017-12-20] MEDS: METOPROLOL TARTRATE 25 MG TAB PO SCH ×2 (20:46→21:00)
[2017-12-20] MEDS: PRAVASTATIN SOD 80 MG TAB PO SCH (20:46)
[2017-12-20] MEDS: SODIUM CHLORIDE 0.9% FLUSH 10 ML FLUSH IV FLUSH SCH ×2 (20:46→20:47)
[2017-12-20] MEDS: DOCUSATE SODIUM 50 MG/SENNA 8.6 MG TAB PO SCH (20:46)
[2017-12-20] MEDS: NITROGLYCERIN 2% OINT 1 GM PACKET TOPICAL SCH (20:47)
--- NOTE | 2017-12-20 22:14 | RADRPT ---
EXAM DATE/TIME: 12/20/2017 20:45 [place] COMPARISON: No previous studies available for comparison. INDICATIONS : Stenosis. MEDICAL HISTORY : Cardiovascular disease. Myocardial infarction. Hypertension. Hepatitis B and C. SURGICAL HISTORY : Cardiac catheterization - Stent x 1. ENCOUNTER: Initial ACUITY: 1 week PAIN SCORE: 0/10 LOCATION: Bilateral neck PEAK SYSTOLIC VELOCITIES (cm/sec): ICA/CCA RATIO: Right: 1.3 Left: 0.6 ICA: Right: 89 Left: 49 CCA: Right: 69 Left: 76 ECA: Right: 90 Left: 59 VERTEBRAL: Right: 34 antegrade Left: 45 antegrade Elevated flow velocities and ICA/CCA ratios have been found to correlate with increased degrees of vessel stenosis, calculated as percentage of diameter relative to a normal segment of distal ICA/CCA FINDINGS: RIGHT CAROTID: No significant stenosis is visualized. Minimal plaque. The waveforms are within normal limits. LEFT CAROTID: No significant stenosis is visualized. Minimal plaque. The waveforms are within normal limits. VERTEBRAL ARTERIES: Antegrade flow is seen in both vertebral arteries. MISCELLANEOUS: None. CONCLUSION: No hemodynamically significant stenosis in either carotid artery. Chacho Ott MD on December 20, 2017 at 22:11 Board Certified Radiologist. This report was verified electronically.
[2017-12-20] MEDS ORDERED: CEFAZOLIN INJ 500 MG in SODIUM CHLORIDE 0.9% IRR BTL 500 ML IRRIGATION SCH (22:30)
[2017-12-20] MEDS ORDERED: METOPROLOL TARTRATE 25 MG TAB PO SCH (22:30)
[2017-12-20] MEDS ORDERED: ceFAZolin 2 GM PREMIX 50 ML IV SCH (22:30)
[2017-12-20] MEDS ORDERED: PAPAVERINE INJ 60 MG, NITROGLYCERIN INJ 100 MCG, DILTIAZEM INJ 100 MG in SODIUM CHLORID... IRRIGATION SCH (22:30)
[2017-12-20] MEDS ORDERED: CHLORHEXIDINE GLUCONATE 4% SOLN 120 ML BTL TOPICAL SCH (22:30)
[2017-12-20] MEDS ORDERED: INSULIN REGULAR (IV INFUSION) 100 UNITS in SODIUM CHLORIDE 0.9% INJ 99 ML IV PRN (22:30)
[2017-12-20] MEDS ORDERED: DEXTROSE 50% IN WATER 50 ML VIAL(D50) IV PUSH PRN (22:30)
--- NOTE | 2017-12-20 22:37 | PD.CAR.PN ---
CVT Progress Note Subjective/Hospital Course: Called to see this 62yo male who is admitted with NSTEMI. He underwent LHC this evening and found to have left main and 3 vessel CAD. He has renal insufficiency with Cr=1.6 and h/o hepatitis B and C. Objective: Vital Signs Date Time Temp Pulse Resp B/P (MAP) Pulse Ox O2 Delivery O2 Flow Rate FiO2 12/20/17 22:01 97 Nasal Cannula 2.00 12/20/17 17:26 56 16 151/83 (105) 97 12/20/17 16:00 58 16 137/68 (91) 97 Nasal Cannula 2.00 12/20/17 14:00 52 16 143/86 (105) 98 Nasal Cannula 2.00 12/20/17 13:00 64 16 134/79 (97) 97 Nasal Cannula 2.00 12/20/17 12:00 59 16 139/81 (100) 98 Nasal Cannula 2.00 12/20/17 11:30 62 18 129/72 (91) 97 Room Air 2.00 12/20/17 10:54 63 16 128/78 (95) 98 Room Air 12/20/17 10:53 63 128/78 (95) 12/20/17 10:03 64 137/87 (104) 12/20/17 10:03 98 Nasal Cannula 2.00 12/20/17 10:03 98.3 62 17 137/87 (104) 97 12/20/17 10:03 98 Room Air Labs: Laboratory Tests Test 12/20/17 16:15 Troponin I 0.09 NG/ML (0.02-0.05) Result Diagram: 12/20/17 1000 12/20/17 1000 Imaging: Last Impressions Chest X-Ray 12/20/17 1026 Signed Impressions: Service Date/Time: December 10:33 - CONCLUSION: 1. Mild bibasilar atelectatic changes/early infiltrates. 2. Compensated cardiomegaly. 3. Widening of the a.c. joints bilaterally. Jaron Mejia MD Plan: Dr. Shore has ordered him to be NPO for possible CABG tomorrow and I have written preop orders. I will discuss surgery with him in the morning and will proceed if he agrees and his creatinine is stable. He has diffuse CAD with fair distal targets.Full consult to follow Monique Noguera MD December 20, 2017 22:36
[2017-12-21] VITALS (15 sets, daily range): BP systolic 92–142; BP diastolic 58–84; PULSE 62–76; RESP 13–20; TEMP 97.3–99.1; O2SAT 82–98
[2017-12-21 01:37] LABS: BILIRUBIN, URINE NEG (NEG); BLOOD, URINE NEG (NEG); GLUCOSE,URINE NEG (NEG); KETONE, URINE 10 mg/dL (NEG); MUCUS URINE FEW /lpf (OCC); NITRITE,URINE NEG (NEG); PH, URINE 5.5 (5.0-8.5); SQUAMOUS EPITHELIAL CELL URINE <1 /hpf (0-5); URINE COLOR YELLOW (YELLW/STRAW); URINE LEUKOCYTE ESTERASE NEG (NEG)
[2017-12-21 03:46] LABS: AUTOMATED NEUTROPHIL # 4.7 TH/MM3 (1.8-7.7); BASOPHIL % 0.5 % (0.0-2.0); EOSINOPHIL # 0.1 TH/MM3 (0-0.4); EOSINOPHIL % 1.7 % (0.0-4.0); HEMATOCRIT 36.2 % (39.0-51.0); HEMOGLOBIN 12.3 GM/DL (13.0-17.0); LYMPH % 12.2 % (9.0-44.0); LYMPHOCYTE # 0.7 TH/MM3 (1.0-4.8); MEAN CELL VOLUME 96.1 FL (80.0-100.0); MEAN CORPUSCULAR HEMOGLOBIN 32.7 PG (27.0-34.0); MEAN PLATELET VOLUME 8.2 FL (7.0-11.0); MONO % 7.2 % (0.0-8.0); MONOCYTE # 0.4 TH/MM3 (0-0.9); NEUT % 78.4 % (16.0-70.0); PLATELET COUNT 159 TH/MM3 (150-450); RED BLOOD COUNT 3.76 MIL/MM3 (4.50-5.90); RED CELL DISTRIBUTION WIDTH 13.6 % (11.6-17.2)
[2017-12-21 04:05] LABS: ALBUMIN 3.1 GM/DL (3.4-5.0); ALT (GPT) 20 U/L (12-78); AST (GOT) 15 U/L (15-37); BICARBONATE 20.9 MEQ/L (21.0-32.0); BLOOD UREA NITROGEN 22 MG/DL (7-18); CALCIUM 8.4 MG/DL (8.5-10.1); CHLORIDE 112 MEQ/L (98-107); CHOLESTEROL 106 MG/DL (120-200); GLOMERULAR FILTRATION RATE 62 ML/MIN (>89); GLUCOSE,RANDOM 78 MG/DL (74-106); MAGNESIUM 1.9 MG/DL (1.5-2.5); SODIUM (NA) 143 MEQ/L (136-145)
[2017-12-21 04:08] LABS: ALKALINE PHOSPHATASE 45 U/L (45-117); CHOLESTEROL/ HDL RATIO 2.96 RATIO; HDL CHOLESTEROL 35.7 MG/DL (40.0-60.0); LDL CHOLESTEROL 58 MG/DL (0-99); TOTAL BILIRUBIN ADULT 0.6 MG/DL (0.2-1.0); TOTAL PROTEIN 6.3 GM/DL (6.4-8.2); TRIGLYCERIDES 64 MG/DL (42-150)
[2017-12-21] MEDS: NITROGLYCERIN 2% OINT 1 GM PACKET TOPICAL SCH (06:00)
[2017-12-21] MEDS ORDERED: methylPREDNISolone SOD SUCC 125 MG/2 ML VIAL ONE (07:12)
[2017-12-21] MEDS ORDERED: VANCOMYCIN HCL 1000 MG VIAL ONE (07:12)
[2017-12-21] MEDS ORDERED: ceFAZolin 2 GM PREMIX 50 ML ONE (07:12)
[2017-12-21] MEDS ORDERED: HEPARIN SODIUM - SQ 10,000 UNITS/ML VIAL ONE (07:12)
[2017-12-21] MEDS ORDERED: PAPAVERINE INJ 60 MG, NITROGLYCERIN INJ 100 MCG, VERAPAMIL INJ 100 MG in SODIUM CHLORID... IRRIGATION SCH ×2 (07:15→07:30)
[2017-12-21] MEDS ORDERED: CARDIOPLEGIC IRR 2,000 ML ONE (07:32)
[2017-12-21] MEDS ORDERED: MANNITOL INJ 100 ML ONE (07:33)
[2017-12-21] MEDS ORDERED: POTASSIUM CHLOR 40 MEQ PREMIX 200 ML ONE (07:33)
[2017-12-21] MEDS ORDERED: ALBUMIN 25% INJ 50 ML IV ONE (07:33)
[2017-12-21] MEDS ORDERED: HEPARIN SODIUM - IV 10,000 UNITS/10 ML VIAL ONE (07:34)
[2017-12-21] MEDS: METOPROLOL TARTRATE 25 MG TAB PO SCH ×2 (07:48→21:41)
--- NOTE | 2017-12-21 07:57 | HHI.PR ---
Subjective Remarks F/U CAD. NOT SEEN, pt in OR Objective Vitals Vital Signs Date Time Temp Pulse Resp B/P (MAP) Pulse Ox O2 Delivery O2 Flow Rate FiO2 12/21/17 04:00 62 12/21/17 04:00 99.1 63 16 130/84 (99) 97 12/21/17 04:00 97 Nasal Cannula 2.00 12/21/17 00:00 70 12/21/17 00:00 98.2 71 18 123/73 (90) 97 12/21/17 00:00 97 Nasal Cannula 2.00 12/20/17 22:01 97 Nasal Cannula 2.00 12/20/17 21:00 94 Nasal Cannula 2.00 12/20/17 20:00 98.0 64 20 141/90 (107) 97 12/20/17 20:00 95 Room Air 12/20/17 20:00 80 12/20/17 17:26 56 16 151/83 (105) 97 12/20/17 16:00 58 16 137/68 (91) 97 Nasal Cannula 2.00 12/20/17 14:00 52 16 143/86 (105) 98 Nasal Cannula 2.00 12/20/17 13:00 64 16 134/79 (97) 97 Nasal Cannula 2.00 12/20/17 12:00 59 16 139/81 (100) 98 Nasal Cannula 2.00 12/20/17 11:30 62 18 129/72 (91) 97 Room Air 2.00 12/20/17 10:54 63 16 128/78 (95) 98 Room Air 12/20/17 10:53 63 128/78 (95) 12/20/17 10:03 64 137/87 (104) 12/20/17 10:03 98 Nasal Cannula 2.00 12/20/17 10:03 98.3 62 17 137/87 (104) 97 12/20/17 10:03 98 Room Air I/O 12/20/17 12/20/17 12/20/17 12/21/17 12/21/17 12/21/17 07:00 15:00 23:00 07:00 15:00 23:00 Intake Total 1000 ml 1145 ml Output Total 1000 ml Balance 1000 ml 145 ml Intake Oral 240 ml IV Total 1000 ml 905 ml Output Urine Total 1000 ml # Bowel Movements 0 Result Diagram: 12/21/17 0323 12/21/17 0323 Imaging Last Impressions Chest X-Ray 12/20/17 1026 Signed Impressions: Service Date/Time: December 10:33 - CONCLUSION: 1. Mild bibasilar atelectatic changes/early infiltrates. 2. Compensated cardiomegaly. 3. Widening of the a.c. joints bilaterally. Jaron Mejia MD Carotid Artery Ultrasound 12/20/17 0000 Signed Impressions: Service Date/Time: , December 20, 2017 20:45 - CONCLUSION: No hemodynamically significant stenosis in either carotid artery. Chacho Ott MD Procedures cardiac cath A/P Problem List: (1) Non-STEMI (non-ST elevated myocardial infarction) ICD Code: I21.4 - Non-ST elevation (NSTEMI) myocardial infarction Status: Acute Assessment and Plan Wall the gastric volvulus is this is a 62-year-old male with history of coronary artery disease status post CA and cardiac catheterization presenting with chest pain Chest pain, non-ST elevated myocardial infarction-EKG reviewed, showed ST depressions in the lateral leads, troponin is mildly elevated at 0.07. Cath shows severe left main and three-vessel CAD. CVT has been consulted for CABG continue aspirin, metoprolol, simvastatin, Nitropaste and heparin drip. Hepatitis B - cont entecavir Hypertension-continue metoprolol and lisinopril Acute on chronic kidney disease stage II. Improving on IV hydration. Avoid nephrotoxins. DVT prophylaxis: Heparin drip Juan M Long MD December 21, 2017 07:57
--- NOTE | 2017-12-21 08:16 | PD.CONS ---
History of Present Illness Service CT Surgery Consult Requested By Dr. Shore Reason for Consult NSTEMI, left main and multivessel CAD Primary Care Physician [facility] Diagnoses: (1) Hyperlipidemia (2) Tobacco abuse (3) CAD (coronary artery disease) (4) HTN (hypertension) (5) Hepatitis C (6) Hepatitis B (7) Non-STEMI (non-ST elevated myocardial infarction) (8) Renal insufficiency History of Present Illness 62 y/o male with multiple risk factors for CAD presents with rest angina and ruled-in for NSTEMI yesterday. He was taken to the labor contractor and found to have left main and 3 vessel CAD. His EF was ~60%. He states he has been havin increasing chest pain and near syncopal episodes in a crescendo pattern for at least a month. He states his pain is substernal and and a lot of pressure with diaphoresis and dyspnea. Some nausea as well. He has a h/o PCI in 2003 with a stent to a PLB which is now occluded. He is being considered for urgent CABG. Review of Systems Constitutional: COMPLAINS OF: Diaphoretic episodes, Fatigue, DENIES: Fever, Weight gain, Weight loss, Chills, Dizziness, Change in appetite, Night Sweats Endocrine: DENIES: Heat/cold intolerance, Polydipsia, Polyuria, Polyphagia Eyes: DENIES: Blurred vision, Diplopia, Eye inflammation, Eye pain, Vision loss , Photosensitivity, Double Vision Ears, nose, mouth, throat: COMPLAINS OF: Hearing loss, DENIES: Tinnitus, Vertigo, Nasal discharge, Oral lesions, Throat pain, Hoarseness, Ear Pain, Running Nose, Epistaxis, Sinus Pain, Toothache, Odynophagia Respiratory: COMPLAINS OF: Cough, DENIES: Apneas, Snoring, Wheezing, Hemoptysis , Sputum production, Shortness of breath Cardiovascular: COMPLAINS OF: Chest pain, DENIES: Palpitations, Syncope, Dyspnea on Exertion, PND, Lower Extremity Edema, Orthopnea, Claudication Gastrointestinal: DENIES: Abdominal pain, Black stools, Bloody stools, Constipation, Diarrhea, Nausea, Vomiting, Difficulty Swallowing, Anorexia Genitourinary: DENIES: Sexual dysfunction, Urinary frequency, Urinary incontinence, Urgency, Hematuria, Dysuria, Nocturia, Penile Discharge, Testicular Pain, Testicular Swelling Musculoskeletal: DENIES: Joint pain, Muscle aches, Stiffness, Joint Swelling, Back pain, Neck pain Integumentary: DENIES: Abnormal pigmentation, Nail changes, Pruritus, Rash Hematologic/lymphatic: DENIES: Bruising, Lymphadenopathy Immunologic/allergic: DENIES: Eczema, Urticaria Neurologic: DENIES: Abnormal gait, Headache, Localized weakness, Paresthesias, Seizures, Speech Problems, Tremor, Poor Balance Psychiatric: DENIES: Anxiety, Confusion, Mood changes, Depression, Hallucinations, Agitation, Suicidal Ideation, Homicidal Ideation, Delusions Past Family Social History Allergies: Coded Allergies: No Known Allergies (Verified Allergy, Unknown, 12/20/17) Past Medical History Past Medical History CAD, s/p AR and PCI 2003 Hepatitis C Hepatitis B HTN Past Surgical History Cardiac catheterization Reported Medications D-2000 Maximum Strength (Cholecalciferol) 2,000 Unit Tab 2,000 Units PO DAILY Lisinopril 5 Mg Tab 5 Mg PO DAILY Metoprolol Tartrate 25 Mg Tab 25 Mg PO Q12HR Simvastatin 40 Mg Tab 40 Mg PO HS Entecavir 0.5 Mg Tab 0.5 Mg PO DAILY Family History No history of cardiac problems in the family. Social History 1 ppd x 40 years Stopped drinking and alcohol since smoking marijuana 2003 Active Ordered Medications Current Medications Medications (Trade) Dose Ordered Sig/Kathe Route Start Time Stop Time Status Last Admin (NS Flush) 2 ml UNSCH PRN IVF 12/20/17 10:30 12/20/17 13:31 (NS Flush) 2 ml UNSCH PRN IV FLUSH 12/20/17 14:00 (NS Flush) 2 ml BID IV FLUSH 12/20/17 21:00 12/20/17 20:46 (Tylenol) 650 mg Q4H PRN PO 12/20/17 14:00 (Narcan Inj) 0.4 mg UNSCH PRN IV PUSH 12/20/17 14:00 (Sonya-Colace) 1 tab BID PO 12/20/17 21:00 12/20/17 20:46 (Milk Of Magnesia Liq) 30 ml Q12H PRN PO 12/20/17 14:00 (Senokot) 17.2 mg Q12H PRN PO 12/20/17 14:00 (Dulcolax Supp) 10 mg DAILY PRN RECTAL 12/20/17 14:00 (Lactulose Liq) 30 ml DAILY PRN PO 12/20/17 14:00 (Vitamin D3) 2,000 units DAILY PO 12/21/17 09:00 (Baraclude) 0.5 mg DAILY PO 12/21/17 09:00 (Prinivil) 5 mg DAILY PO 12/21/17 09:00 (Lopressor) 25 mg Q12HR PO 12/20/17 21:00 12/21/17 07:48 (Pravachol) 80 mg HS PO 12/20/17 21:00 12/20/17 20:46 (Nitroglycerin 2% Oint) 2 inch Q8HR TOPICAL 12/20/17 22:00 12/21/17 06:00 Sodium Chloride 1,000 ml @ 84 mls/hr [id number] IV 12/20/17 15:30 12/20/17 20:47 (NS Flush) 2 ml BID IV FLUSH 12/20/17 21:00 12/20/17 20:47 (NS Flush) 2 ml UNSCH PRN IV FLUSH 12/20/17 18:30 Heparin Sodium/ Dextrose 250 ml @ 10 mls/hr TITRATE PRN IV 12/20/17 19:30 12/20/17 20:49 (Ecotrin Ec) 162 mg DAILY PO 12/21/17 09:00 (NS Flush) 2 ml BID IV FLUSH 12/21/17 09:00 (NS Flush) 2 ml UNSCH PRN IV FLUSH 12/20/17 22:30 Cefazolin Sodium 500 mg/Sodium Chloride 505 ml @ 0 mls/hr PASTE UP WORKER IRRIGATION 12/20/17 22:30 12/27/17 22:29 Cefazolin Sodium/ Dextrose 50 ml @ 150 mls/hr PASTE UP WORKER IV 12/20/17 22:30 12/27/17 22:29 (Lopressor) 12.5 mg PASTE UP WORKER PO 12/20/17 22:30 12/27/17 22:29 (Bactroban Nasal 2% Oint) 1 applic BID EACH NARE 12/21/17 09:00 12/26/17 08:59 (Hibiclens 4% Top Soln) 1 applic PASTE UP WORKER TOPICAL 12/20/17 22:30 12/27/17 22:29 Insulin Human Regular 100 units/ Sodium Chloride 100 ml @ 3 mls/hr TITRATE PRN IV 12/20/17 22:30 12/27/17 22:29 (D50w (Vial) Inj) 50 ml UNSCH PRN IV PUSH 12/20/17 22:30 Papaverine HCl 60 mg/Nitroglycerin 100 mcg/Verapamil HCl 100 mg/Sodium Chloride 100 ml @ 0 mls/hr PA[employer] WORKER IRRIGATION 12/21/17 07:30 12/27/17 22:29 Physical Exam Vital Signs Vital Signs Date Time Temp Pulse Resp B/P (MAP) Pulse Ox O2 Delivery O2 Flow Rate FiO2 12/21/17 04:00 62 12/21/17 04:00 99.1 63 16 130/84 (99) 97 12/21/17 04:00 97 Nasal Cannula 2.00 12/21/17 00:00 70 12/21/17 00:00 98.2 71 18 123/73 (90) 97 12/21/17 00:00 97 Nasal Cannula 2.00 12/20/17 22:01 97 Nasal Cannula 2.00 12/20/17 21:00 94 Nasal Cannula 2.00 12/20/17 20:00 98.0 64 20 141/90 (107) 97 12/20/17 20:00 95 Room Air 12/20/17 20:00 80 12/20/17 17:26 56 16 151/83 (105) 97 12/20/17 16:00 58 16 137/68 (91) 97 Nasal Cannula 2.00 12/20/17 14:00 52 16 143/86 (105) 98 Nasal Cannula 2.00 12/20/17 13:00 64 16 134/79 (97) 97 Nasal Cannula 2.00 12/20/17 12:00 59 16 139/81 (100) 98 Nasal Cannula 2.00 12/20/17 11:30 62 18 129/72 (91) 97 Room Air 2.00 12/20/17 10:54 63 16 128/78 (95) 98 Room Air 12/20/17 10:53 63 128/78 (95) 12/20/17 10:03 64 137/87 (104) 12/20/17 10:03 98 Nasal Cannula 2.00 12/20/17 10:03 98.3 62 17 137/87 (104) 97 12/20/17 10:03 98 Room Air Physical Exam GENERAL: This is a disheveled, well-developed patient, in no apparent distress. SKIN: No rashes, ecchymoses or lesions. Cool and dry. HEAD: Atraumatic. Normocephalic. No temporal or scalp tenderness. EYES: Pupils equal round and reactive. Extraocular motions intact. No scleral icterus. No injection or drainage. ENT: Nose without bleeding, purulent drainage or septal hematoma. Throat without erythema, tonsillar hypertrophy or exudate. Uvula midline. Airway patent. POOR DENTITION WITH NUMEROUS LOOSE TEETH NECK: Trachea midline. No JVD or lymphadenopathy. Supple, nontender, no meningeal signs. CARDIOVASCULAR: Regular rate and rhythm without murmurs, gallops, or rubs. RESPIRATORY: Clear to auscultation. Breath sounds equal bilaterally. No wheezes , rales, or rhonchi. GASTROINTESTINAL: Abdomen soft, non-tender, nondistended. No hepato-splenomegaly , or palpable masses. No guarding. MUSCULOSKELETAL: Extremities without clubbing, cyanosis, or edema. No joint tenderness, effusion, or edema noted. No calf tenderness. Negative Homans sign bilaterally. NEUROLOGICAL: Awake and alert. Cranial nerves II through XII intact. Motor and sensory grossly within normal limits. Five out of 5 muscle strength in all muscle groups. Normal speech. Laboratory Laboratory Tests Test 12/20/17 10:00 12/20/17 16:15 12/20/17 22:13 12/21/17 00:30 White Blood Count 5.9 Red Blood Count 3.88 Hemoglobin 12.6 Hematocrit 37.8 Mean Corpuscular Volume 97.5 Mean Corpuscular Hemoglobin 32.6 Mean Corpuscular Hemoglobin Concent 33.4 Red Cell Distribution Width 13.6 Platelet Count 165 Mean Platelet Volume 8.5 Neutrophils (%) (Auto) 71.6 Lymphocytes (%) (Auto) 16.5 Monocytes (%) (Auto) 9.3 Eosinophils (%) (Auto) 1.9 Basophils (%) (Auto) 0.7 Neutrophils # (Auto) 4.3 Lymphocytes # (Auto) 1.0 Monocytes # (Auto) 0.5 Eosinophils # (Auto) 0.1 Basophils # (Auto) 0.0 CBC Comment DIFF FINAL Differential Comment Prothrombin Time 10.4 Prothromb Time International Ratio 1.0 Activated Partial Thromboplast Time 24.7 Blood Urea Nitrogen 30 Creatinine 1.57 Random Glucose 84 Total Protein 6.9 Albumin 3.4 Calcium Level 8.6 Magnesium Level 2.2 Alkaline Phosphatase 47 Aspartate Amino Transf (AST/SGOT) 22 Alanine Aminotransferase (ALT/SGPT) 26 Total Bilirubin 0.5 Sodium Level 142 Potassium Level 4.3 Chloride Level 111 Carbon Dioxide Level 24.3 Anion Gap 7 Estimat Glomerular Filtration Rate 45 Total Creatine Kinase 129 Creatine Kinase MB 2.9 Troponin I 0.07 0.09 0.10 B-Type Natriuretic Peptide 378 Urine Color YELLOW Urine Turbidity CLEAR Urine pH 5.5 Urine Specific [place] 1.038 Urine Protein NEG Urine Glucose (UA) NEG Urine Ketones 10 Urine Occult Blood NEG Urine Nitrite NEG Urine Bilirubin NEG Urine Urobilinogen LESS THAN 2.0 Urine Leukocyte Esterase NEG Urine Squamous Epithelial Cells <1 Urine Mucus FEW Microscopic Urinalysis Comment CULT NOT INDICATED Test 12/21/17 03:17 12/21/17 03:23 Nasal Screen MRSA (PCR) MRSA NOT DETECTED White Blood Count 6.0 Red Blood Count 3.76 Hemoglobin 12.3 Hematocrit 36.2 Mean Corpuscular Volume 96.1 Mean Corpuscular Hemoglobin 32.7 Mean Corpuscular Hemoglobin Concent 34.0 Red Cell Distribution Width 13.6 Platelet Count 159 Mean Platelet Volume 8.2 Neutrophils (%) (Auto) 78.4 Lymphocytes (%) (Auto) 12.2 Monocytes (%) (Auto) 7.2 Eosinophils (%) (Auto) 1.7 Basophils (%) (Auto) 0.5 Neutrophils # (Auto) 4.7 Lymphocytes # (Auto) 0.7 Monocytes # (Auto) 0.4 Eosinophils # (Auto) 0.1 Basophils # (Auto) 0.0 CBC Comment DIFF FINAL Differential Comment Activated Partial Thromboplast Time 33.5 Blood Urea Nitrogen 22 Creatinine 1.20 Random Glucose 78 Total Protein 6.3 Albumin 3.1 Calcium Level 8.4 Magnesium Level 1.9 Alkaline Phosphatase 45 Aspartate Amino Transf (AST/SGOT) 15 Alanine Aminotransferase (ALT/SGPT) 20 Total Bilirubin 0.6 Sodium Level 143 Potassium Level 3.9 Chloride Level 112 Carbon Dioxide Level 20.9 Anion Gap 10 Estimat Glomerular Filtration Rate 62 B-Type Natriuretic Peptide 463 Triglycerides Level 64 Cholesterol Level 106 LDL Cholesterol 58 HDL Cholesterol 35.7 Cholesterol/HDL Ratio 2.96 Result Diagram: 12/21/17 0323 12/21/17 0323 Imaging Last Impressions Chest X-Ray 12/20/17 1026 Signed Impressions: Service Date/Time: December 10:33 - CONCLUSION: 1. Mild bibasilar atelectatic changes/early infiltrates. 2. Compensated cardiomegaly. 3. Widening of the a.c. joints bilaterally. Jaron Mejia MD Carotid Artery Ultrasound 12/20/17 0000 Signed Impressions: Service Date/Time: December 20:45 - CONCLUSION: No hemodynamically significant stenosis in either carotid artery. Chacho Ott MD Course Patient has been pain-free overnight Assessment and Plan Problem List: (1) Non-STEMI (non-ST elevated myocardial infarction) ICD Codes: I21.4 - Non-ST elevation (NSTEMI) myocardial infarction Status: Acute (2) CAD (coronary artery disease) ICD Codes: I25.10 - Atherosclerotic heart disease of [place] coronary artery without angina pectoris (3) Hyperlipidemia ICD Codes: E78.5 - Hyperlipidemia, unspecified (4) Tobacco abuse ICD Codes: Z72.0 - Tobacco use Status: Acute Plan: Counselled to quit immediately. (5) Renal insufficiency ICD Codes: N28.9 - Disorder of kidney and ureter, unspecified Plan: Baseline creatinine is 1.6 which improved overnight with hydration to 1.2 Assessment and Plan Recommend CABG. He has diffuse CAD with relatively small-appearing distal targets. Risks and benefits discussed and he agrees to proceed. Risk Model and Variables - STS Adult Cardiac Surgery Database Version 2.81 RISK SCORES About the STS Risk Calculator Procedure: CAB Only Risk of Mortality: 1.858% Morbidity or Mortality: 20.475% Long Length of Stay: 6.305% Short Length of Stay: 45.361% Permanent Stroke: 1.192% Prolonged Ventilation: 13.752% DSW Infection: 0.428% Renal Failure: 6.544% Reoperation: 5.801% Problem Qualifiers (1) Hyperlipidemia: Qualified Codes: E78.5 - Hyperlipidemia, unspecified (2) CAD (coronary artery disease): Qualified Codes: I25.110 - Atherosclerotic heart disease of [place] coronary artery with unstable angina pectoris (3) HTN (hypertension): Qualified Codes: I10 - Essential (primary) hypertension (4) Hepatitis C: (5) Hepatitis B: Monique Noguera MD December 21, 2017 08:16
[2017-12-21] MEDS ORDERED: LISINOPRIL 5 MG TAB PO SCH (09:00)
[2017-12-21] MEDS: DOCUSATE SODIUM 50 MG/SENNA 8.6 MG TAB PO SCH ×2 (09:00→21:41)
[2017-12-21] MEDS: MUPIROCIN 2% OINT 1 APPLIC/GM SYR EACH NARE SCH ×2 (09:00→21:00)
[2017-12-21] MEDS: ASPIRIN EC 81 MG TABEC PO SCH (09:00)
[2017-12-21] MEDS: CHOLECALCIFEROL (VIT D3) 1000 UNIT TAB PO SCH (09:00)
[2017-12-21] MEDS: SODIUM CHLORIDE 0.9% FLUSH 10 ML FLUSH IV FLUSH SCH ×7 (09:00→21:41)
[2017-12-21] MEDS: ENTECAVIR 0.5 MG TAB PO SCH (09:00)
[2017-12-21] MEDS ORDERED: IOHEXOL 350 MG/ML 50 ML BTL (for Cath Lab) OTHER ONE (09:02)
--- NOTE | 2017-12-21 10:54 | HHI.FF ---
Face to Face Verification Diagnosis: (1) S/P CABG (coronary artery bypass graft) (2) Non-STEMI (non-ST elevated myocardial infarction) (3) HTN (hypertension) (4) Hepatitis B (5) Hepatitis C (6) CAD (coronary artery disease) (7) Hyperlipidemia (8) Tobacco abuse (9) Renal insufficiency Physical Therapy Order: Evaluate and Treat Speech Therapy Instructions: Heart and Vascular Surgery patients *Special attention to sternal dressing Mandatory frequency Assess and evaluation, 4 days in a row The next week 3X week 2 times a week for 4 weeks 1 time a week for 5 weeks Schedule Heart and Vascular patients for full 60 day certification period Initial visit Review Open Heart Surgery Discharge Instructions (Sternal precautions, Activity, Elastic hose, Incision care, Driving, Incentive spirometry, Smoking, [place], Work and other) Need Betadine to paint incision Medication reconciliation Importance of follow up care/ check on appointments Make calendar record temperature daily When to call [facility] nurse, review instructions, phone list Incentive Spirometry, demonstration Visit 1- Begin discharge instruction for patient family and/ or caregiver using teach back method- Signs and symptoms of infection Disease characteristics Medicines and side effects Foods and nutrition/ appetite Infection control/ hand washing/ hygiene Visit 2- Continue teaching Discharge instructions- include additional information on smoking cessation , sternal dressing (sternal vac) Visit 3- Continue teaching- Cough and deep breathing, incision monitoring. Choose my plate Visit 4- Continue teaching- Discuss limitations Discuss how they are feeling Discuss progress toward goals Remaining visits- continue teaching and monitoring For any questions please call : Sunday 8am-5pm Heart & Vascular Surgery Office ( Dr. Luke & Dr. Noguera), After Hours / Nights (5pm -8am) Weekends and Holidays Please call [facility] ([facility] Charge Nurse PREVENA Single Use Negative Wound Therapy System Caregiver Instruction Sheet 1. A Prevena dressing system was applied to the chest incision during surgery , to promote wound healing. It works via a suction device (negative pressure wound therapy) to remove low to moderate levels of exudate (drainage) and infectious materials. We recommend that the device stay in place for up to seven days, from day of surgery. 2. Day of Surgery____12/21/17 Day of Removal ___5/ 3. The dressing should only be removed by a health physician locums urgent care. Please arrange removal of device to coincide with Home Health visit and or with Nursing staff at Rehab 4. If skin reddening or irritation of skin occurs, or excessive drainage, please notify the Cardiovascular Surgeons office at [phone]. 5. Light showering is permissible; however the pump should be disconnected and placed in safe location, where it will not get wet. The dressing should not be exposed to direct spray or submerged in water. No bath tub / shower only. Ensure the end of the tubing attached to the dressing is facing down so that water does not enter the top of the tube. 6. To remove Prevena dressing: press purple button to turn off device / remove the suction. Then disconnect the tubing from the pump. The fixation strips should be stretched away from the skin and the dressing lifted at one corner and peeled back until it has been fully removed. 7. After removal, it is ok to shower daily using liquid dial soap and clean wash cloth, rinse and pat dry, and leave incision open to air dry. For any concerns regarding Prevena dressing, and or wounds, please contact Ade Turner, patient navigator at [phone] or notify the Cardiovascular Surgeons office at [phone]. Incentive spirometry Q1 hr x 10, while awake, also use acapella device hourly whole awake Sternal Breast Bone Precautions: NO pushing or pulling, ( pt must use sternal pillow to support chest with all activities and with coughing ( takes up to 3 months breast bone to heal ) All females to wear sternal bra , launder as needed Daily incision care: ok to shower daily, no tub bath. Wash all incisions with liquid dial soap, clean wash cloth to each site, rinse and pat dry. Observe for any signs of infection, such as drainage which is dark yellow, cohen, green or foul smelling. Immediately report to the surgeon any drainage from the chest incision, or legs, and for any abnormal drainage from the chest tube sites. Notify surgeon if any temp >101.5 degrees F. When specialty dressing removed/ or if you do not have one, continue to shower daily as above, then rinse and pat incision dry and paint with betadine daily x 5 days. Allow steri strips to fall off if you have any. Avoid lotions, creams, salves, oils, etc. for the first month Please see attached forms for additional instructions regarding post Open Heart specialty wound vacuum dressings. DIMITRI or Prevena , Dressing to be removed by Nursing staff on __12/28/[address] Noguera patients , please obtain CBC, BMP, PA & Lat CXR in 2 weeks, results to Dr. Noguera ( prescription will be given) ( ) (Tele: [phone]) , Valve replacement pts will need 2decho in 2 weeks with results to Dr. Noguera . Please obtain 2 d echo at your segment block layer office if possible F/U appointment: as per DC instructions: PCP in 2 weeks, CV surgeon 2 weeks, Field Sales Engineer 3-4 weeks For any questions regarding incisions/ dressing / meds / post op care or above Symptoms, Sunday 8am-5pm Heart & Vascular Surgery Office ( Dr. Luke & Dr. Noguera), After Hours / Nights (5pm -8am) Weekends and Holidays Please call [facility] ([facility]) Charge Nurse Home Health Nursing Order: Signs/symptoms of disease process Medication education-adverse effect Wound care and dressing changes Nursing assessment with vital signs I have seen patient Leonard Ram on 12/21/17. My clinical findings support the need for the requested home health care services because: Deconditioned w/ increased weakness I certify that my clinical findings support that this patient is homebound because: Post-op weakness Sabrina Wall December 21, 2017 10:54
[2017-12-21] MEDS ORDERED: PROTAMINE SULFATE 250 MG/25 ML VIAL IV ONE (12:00)
[2017-12-21] MEDS ORDERED: DEXMEDETOMIDINE HCL 200 MCG/2 ML VIAL IV ONE (12:00)
[2017-12-21] MEDS ORDERED: NEOSTIGMINE METHYLSULFATE 10 MG/10 ML VIAL IV PUSH ONE (12:00)
[2017-12-21] MEDS ORDERED: ePHEDrine/NS 25 MG/5 ML SYRINGE IV ONE (12:00)
[2017-12-21] MEDS ORDERED: SODIUM CHLOR 0.9% 250 ML INJ 250 ML IV ONE (12:00)
[2017-12-21] MEDS ORDERED: PHENYLEPHRINE HCL 10 MG/ML VIAL IV ONE (12:00)
[2017-12-21] MEDS ORDERED: LIDOCAINE HCL 1% PF 5 ML AMPULE OTHER ONE (12:00)
[2017-12-21] MEDS ORDERED: MAGNESIUM SULFATE 1 GM/2 ML VIAL IV ONE (12:00)
[2017-12-21] MEDS ORDERED: HEPARIN SODIUM - SQ 10,000 UNITS/ML VIAL OTHER ONE (12:00)
[2017-12-21] MEDS ORDERED: VECURONIUM BROMIDE 10 MG VIAL IV ONE (12:00)
[2017-12-21] MEDS ORDERED: NITROGLYCERIN 50 MG/DEXTROSE 5% SOLN 250 ML BTL IV ONE (12:00)
[2017-12-21] MEDS ORDERED: NORMOSOL R INJ 2,000 ML IV ONE (12:00)
[2017-12-21] MEDS ORDERED: NS 100 ML (PAB BAG) 100 ML IV ONE (12:00)
[2017-12-21] MEDS ORDERED: AMINOCAPROIC ACID INJ 250 MG/ML 20 ML VIAL IV ONE (12:00)
[2017-12-21] MEDS ORDERED: SODIUM BICARBONATE 8.4% INJ 50 MEQ/50 ML SYR IV ONE (12:00)
[2017-12-21] MEDS ORDERED: PHENYLEPH/NS 1000 MCG/10 ML SYR IV ONE (12:00)
[2017-12-21] MEDS ORDERED: GLYCOPYRROLATE 0.2 MG/ML VIAL IV ONE (12:00)
[2017-12-21] MEDS ORDERED: CALCIUM CHLORIDE 10% SOLN 1 GRAM/10 ML SYR IV ONE (12:00)
[2017-12-21] MEDS ORDERED: LACTATED RINGER'S 1000 ML INJ 2,000 ML IV ONE (12:00)
[2017-12-21] MEDS ORDERED: ceFAZolin INJ 1,000 MG VIAL ONE (13:07)
[2017-12-21] MEDS ORDERED: ENOXAPARIN SODIUM 30 MG/0.3 ML SYRINGE SQ SCH (14:00)
[2017-12-21] MEDS ORDERED: LACTATED RINGER'S 1000 ML INJ 500 ML IV PRN (14:50)
[2017-12-21] MEDS ORDERED: SODIUM CHLORIDE 0.9% FLUSH 10 ML FLUSH IV FLUSH PRN (15:00)
[2017-12-21] MEDS ORDERED: RESP: RACEPINEPHRINE 2.25% 0.5 ML NEB NEB PRN (15:00)
[2017-12-21] MEDS ORDERED: MAGNESIUM SULFATE INJ 2 GM in SODIUM CHLORIDE 0.9% INJ 100 ML IV PRN ×4 (15:00)
[2017-12-21] MEDS ORDERED: DEXMEDETOMIDINE INJ 200 MCG in SODIUM CHLORIDE 0.9% INJ 50 ML IV PRN (15:00)
[2017-12-21] MEDS ORDERED: hydrALAZINE HCL 20 MG/ML VIAL IV PUSH PRN (15:00)
[2017-12-21] MEDS ORDERED: ALBUMIN 5% INJ 250 ML IV PRN (15:00)
[2017-12-21] MEDS ORDERED: SODIUM BICARBONATE 8.4% SOLN 50 MEQ/50 ML VIAL IV PUSH PRN ×2 (15:00)
[2017-12-21] MEDS ORDERED: METOPROLOL TARTRATE 5 MG/5 ML VIAL IV PUSH PRN (15:00)
[2017-12-21] MEDS ORDERED: DEXTROSE 50% IN WATER 50 ML VIAL(D50) IV PUSH PRN (15:00)
[2017-12-21] MEDS ORDERED: INSULIN REGULAR (IV INFUSION) 100 UNITS in SODIUM CHLORIDE 0.9% INJ 99 ML IV PRN (15:00)
[2017-12-21] MEDS ORDERED: ONDANSETRON HCL 4 MG/2 ML VIAL IV PUSH PRN (15:00)
[2017-12-21] MEDS ORDERED: ACETAMINOPHEN 325 MG TAB PO PRN (15:00)
[2017-12-21] MEDS ORDERED: POTASSIUM CHLOR 20 MEQ PREMIX 100 ML IV PRN ×3 (15:00)
[2017-12-21] MEDS ORDERED: ACETAMINOPHEN 650 MG SUPP RECTAL PRN (15:00)
[2017-12-21] MEDS ORDERED: oxyCODONE/ACETAMINOPHEN 5 MG/325 MG TAB PO PRN (15:00)
[2017-12-21] MEDS ORDERED: CALCIUM CHLORIDE INJ 1 GM in SODIUM CHLORIDE 0.9% INJ 100 ML IV PRN (15:00)
[2017-12-21] MEDS ORDERED: CLEVIDIPINE INJ 50 ML IV PRN (15:00)
[2017-12-21] MEDS ORDERED: Post-op Orders (for Pharmacy) OTHER ONE (15:00)
[2017-12-21] MEDS ORDERED: CALCIUM CHLORIDE 10% 1 GRAM/10 ML VIAL IV PUSH PRN (15:00)
[2017-12-21] MEDS ORDERED: POTASSIUM CHLORIDE 20 MEQ CONTROLLED RELEASE TAB PO PRN ×2 (15:00)
[2017-12-21] MEDS ORDERED: RESP: ALBUTEROL 2.5 MG/IPRATROPIUM 0.5 MG NEB (PRN) NEB (15:00)
--- NOTE | 2017-12-21 15:04 | PD.OP ---
cc: Alex Shore MD; Monique Noguera MD Operative Report Date of Surgery: December 21, 2017 Preoperative Diagnosis: (1) CAD (coronary artery disease) (2) Non-STEMI (non-ST elevated myocardial infarction) Postoperative Diagnosis: same Procedure: CABG x 6 MENENDEZ to LAD - good SVG to D1 - good SVG to Ramus - good SVG to OM1 - good SVG to PLB - good SVG to PDA - good EVH - bilateral Anesthesia: Dr. Cummings Surgeon: Monique Noguera Vendor Quality Supervisor(s): DERREK Theodore Operation and Findings: The risks, benefits, complications, treatment options, and expected outcomes were discussed with the patient. The possibilities of reaction to medication, pulmonary aspiration, perforation of viscus, bleeding, recurrent infection, the need for additional procedures, failure to diagnose a condition, and creating a complication requiring transfusion or operation were discussed with the patient. The patient concurred with the proposed plan, giving informed consent. The site of surgery properly noted/marked. The patient was taken to Operating Room, identified as Leonard Ram and the procedure verified as CABG, EVH. A Time Out was held and the above information confirmed. Standard monitoring lines and [place] catheter were placed. General anesthesia was induced. The patient was prepped and draped in a sterile fashion. A median sternotomy was performed and electrocautery was used to obtain hemostasis. The left internal mammary artery was procured as a pedicle from the 7th rib to the 1st rib in the usual manner. Simultaneously left and right greater saphenous vein was procured from the both legs using a minimally invasive endoscopic technique. The vein in the right leg has numerous varicosities and was fair quality. The vein was prepared for anastomosis and the leg wound was irrigated and closed in 2 layers. The pericardium was opened and a pericardial sling was created using interrupted 0 silk sutures. The patient was heparinized for cardiopulmonary bypass and the distal mammary pedicle was instrumented for anastomosis. The heart was instrumented for cardiopulmonary bypass in the usual manner. Antegrade blood cardioplegia was employed. The patient was placed on cardiopulmonary bypass. An aortic cross-clamp was applied and the heart was arrested using cold blood cardioplegia. Antegrade cardioplegia was administered after he each anastomosis. After adequate arrest, the distal right coronary circulation was investigated and the PLB was opened with a [place] blade and found to be a 1.5 millimeter good target. Saphenous vein was approximated to the PLB artery using a running 7 0 Prolene suture. The graft was measured for length and orientation and the proximal anastomosis was constructed to the ascending aorta using a running 5 0 Prolene suture after creating an aortotomy with a 5 millimeter punch. The PDA was opened with a [place] blade and found to be a 1.5 millimeter good target. Saphenous vein was approximated to the PDA artery using a running 7 0 Prolene suture. The graft was measured for length and orientation and the proximal anastomosis was constructed to the ascending aorta using a running 5 0 Prolene suture after creating an aortotomy with a 5 millimeter punch. The Ramus Intermedius artery was opened with a [place] blade and found to be a 1.5 millimeter good target. Saphenous vein was approximated to the RI artery using a running 7 0 Prolene suture. The graft was measured for length and orientation and the proximal anastomosis was constructed to the ascending aorta using a running 5 0 Prolene suture after creating an aortotomy with a 5 millimeter punch. The D1 artery was opened with a [place] blade and found to be a 1.5 millimeter good target. Saphenous vein was approximated to the D1 artery using a running 7 0 Prolene suture. The graft was measured for length and orientation and the proximal anastomosis was constructed to the ascending aorta using a running 5 0 Prolene suture after creating an aortotomy with a 5 millimeter punch. The 1st circumflex marginal artery was then opened with a [place] blade and found to be a 1.5 millimeter good target. Saphenous vein was approximated to the OM1 artery using a running 7 0 Prolene suture. The graft was measured for length and orientation and was suspended from the pericardium. The distal LAD was opened with a [place] blade and found to be a 1.5 millimeter good target. The left internal mammary artery was approximated to the LAD using a running 7 0 Prolene suture. The pedicle was attached to the epicardium using interrupted 5 0 silk suture. The patient was systemically rewarmed and received a hotshot dose of warm blood cardioplegia. The aorta was vented and the proximal anastomosis to the OM1 graft was accomplished using a running 5 0 Prolene suture after creating an aortotomy was a 5 millimeter punch. The cross -clamp was removed and all proximal and distal anastomoses were examined for hemostasis. The patient was weaned from cardiopulmonary bypass. Protamine was given. There was no adverse reaction. Decannulation was carried out without incident. Wound was checked for hemostasis which was obtained using electrocautery. A 36 [place] mediastinal and 32 [place] left pleural chest was were placed and secured to the skin with 0 silk suture. The sternum was closed with stainless steel wire. The fascia was closed with 1. PDS. The subcutaneous tissue was closed using a running 2-0 Vicryl suture. The skin was closed with 4- 0 Monocryl. Sterile dressings were placed. At the end of the operation, all sponge, instruments, and needle counts were correct. The patient was transferred to the CVICU in stable condition. Findings: good distal targets, fair quality saphenous vein XC: 104 min CPB: 121 min Drains: mediastinal x 1 pleural x 1 Complications: none Disposition: to CVICU in stable condition Monique Noguera MD December 21, 2017 15:04
[2017-12-21] MEDS: SODIUM CHLOR 0.9% 1000 ML INJ 1,000 ML IV SCH (15:20)
[2017-12-21] MEDS ORDERED: MIDAZOLAM HCL 2 MG/2 ML VIAL ONE ×2 (15:51)
[2017-12-21] MEDS ORDERED: fentaNYL CITRATE 250 MCG/5 ML AMP ONE ×2 (15:53)
--- NOTE | 2017-12-21 16:04 | RADRPT ---
EXAM DATE/TIME: 12/21/2017 16:30 [facility] COMPARISON: CHEST SINGLE AP, December 20, 2017, 10:33. INDICATIONS : S/P CABG MEDICAL HISTORY : Cardiovascular disease. Myocardial infarction. Hypertension. Hepatitis B and C. SURGICAL HISTORY : Cardiac catheterization - Stent x 1. ENCOUNTER: Subsequent ACUITY: 2 days PAIN SCORE: Non-responsive. LOCATION: Bilateral chest FINDINGS: Endotracheal tube is present with tip 6 cm above the clau. Nasogastric tube descends in the stomach . Left thoracostomy tube is present and a midline chest tube is present. Right neck sheath and centra l catheter are present in good position. There are sternotomy wires present. There is hazy bilateral perihilar and basilar parenchymal opacity. Cardiac contours are satisfactory. CONCLUSION: Mild parenchymal edema. Satisfactory support line and tube positioning. Kwabena Bolivar MD on December 21, 2017 at 16:01 Board Certified Radiologist. This report was verified electronically.
[2017-12-21] MEDS: ACETAMINOPHEN 1000 MG/100 ML 100 ML IV SCH ×2 (16:16→21:40)
--- NOTE | 2017-12-21 21:22 | PD.CARD.PN ---
Subjective Subjective Remarks sitting on side of bed in nad Objective Medications Current Medications Medications (Trade) Dose Ordered Sig/Kathe Route Start Time Stop Time Status Last Admin (NS Flush) 2 ml UNSCH PRN IVF 12/20/17 10:30 12/20/17 13:31 (NS Flush) 2 ml UNSCH PRN IV FLUSH 12/20/17 14:00 (NS Flush) 2 ml BID IV FLUSH 12/20/17 21:00 12/20/17 20:46 (Tylenol) 650 mg Q4H PRN PO 12/20/17 14:00 (Narcan Inj) 0.4 mg UNSCH PRN IV PUSH 12/20/17 14:00 (Sonya-Colace) 1 tab BID PO 12/20/17 21:00 12/20/17 20:46 (Milk Of Magnesia Liq) 30 ml Q12H PRN PO 12/20/17 14:00 (Senokot) 17.2 mg Q12H PRN PO 12/20/17 14:00 (Dulcolax Supp) 10 mg DAILY PRN RECTAL 12/20/17 14:00 (Lactulose Liq) 30 ml DAILY PRN PO 12/20/17 14:00 (Vitamin D3) 2,000 units DAILY PO 12/21/17 09:00 (Baraclude) 0.5 mg DAILY PO 12/21/17 09:00 (Lopressor) 25 mg Q12HR PO 12/20/17 21:00 12/21/17 07:48 (Pravachol) 80 mg HS PO 12/20/17 21:00 12/20/17 20:46 Sodium Chloride 1,000 ml @ 84 mls/hr [id number] IV 12/20/17 15:30 12/20/17 20:47 (NS Flush) 2 ml BID IV FLUSH 12/20/17 21:00 12/20/17 20:47 (NS Flush) 2 ml UNSCH PRN IV FLUSH 12/20/17 18:30 (Ecotrin Ec) 162 mg DAILY PO 12/21/17 09:00 (NS Flush) 2 ml BID IV FLUSH 12/21/17 09:00 (NS Flush) 2 ml UNSCH PRN IV FLUSH 12/20/17 22:30 Cefazolin Sodium 500 mg/Sodium Chloride 505 ml @ 0 mls/hr LEGAL BILLING COORDINATOR IRRIGATION 12/20/17 22:30 12/27/17 22:29 12/21/17 10:05 Cefazolin Sodium/ Dextrose 50 ml @ 150 mls/hr LEGAL BILLING COORDINATOR IV 12/20/17 22:30 12/27/17 22:29 12/21/17 09:10 (Lopressor) 12.5 mg LEGAL BILLING COORDINATOR PO 12/20/17 22:30 12/27/17 22:29 (Bactroban Nasal 2% Oint) 1 applic BID EACH NARE 12/21/17 09:00 12/26/17 08:59 (Hibiclens 4% Top Soln) 1 applic LEGAL BILLING COORDINATOR TOPICAL 12/20/17 22:30 12/27/17 22:29 Insulin Human Regular 100 units/ Sodium Chloride 100 ml @ 3 mls/hr TITRATE PRN IV 12/20/17 22:30 12/27/17 22:29 (D50w (Vial) Inj) 50 ml UNSCH PRN IV PUSH 12/20/17 22:30 Papaverine HCl 60 mg/Nitroglycerin 100 mcg/Verapamil HCl 100 mg/Sodium Chloride 100 ml @ 0 mls/hr LEGAL BILLING COORDINATOR IRRIGATION 12/21/17 07:30 12/27/17 22:29 12/21/17 10:13 (NS Flush) 2 ml BID IV FLUSH 12/21/17 21:00 (NS Flush) 2 ml UNSCH PRN IV FLUSH 12/21/17 15:00 Dexmedetomidine HCl 200 mcg/ Sodium Chloride 52 ml @ 3.97 mls/hr TITRATE PRN IV 12/21/17 15:00 12/21/17 15:19 Clevidipine 50 ml @ 2 mls/hr TITRATE PRN IV 12/21/17 15:00 Albumin Human 250 ml @ 250 mls/hr UNSCH PRN IV 12/21/17 15:00 Lactated Ringer's 500 ml @ 500 mls/hr Q1H PRN IV 12/21/17 14:50 12/21/17 15:54 Cefazolin Sodium 1000 mg/Sodium Chloride 100 ml @ 200 mls/hr Q8H IV 12/21/17 18:00 12/23/17 02:29 12/21/17 17:28 (Aspirin Chew) 81 mg DAILY PO 12/22/17 09:00 (Protonix) 40 mg DAILY@06 PO 12/22/17 06:00 (Cordarone) 400 mg Q8HR PO 12/21/17 22:00 (Tylenol) 650 mg Q4H PRN PO 12/21/17 15:00 (Tylenol Supp) 650 mg Q4H PRN RECTAL 12/21/17 15:00 Acetaminophen 100 ml @ 400 mls/hr Q6H IV 12/21/17 15:00 12/22/17 09:14 12/21/17 16:16 (Percocet 5-325 Mg) 1 tab Q3H PRN PO 12/21/17 15:00 (fentaNYL INJ) 25 mcg Q1H PRN IV PUSH 12/21/17 15:00 (Zofran Inj) 4 mg Q6H PRN IV PUSH 12/21/17 15:00 (Apresoline Inj) 10 mg Q4H PRN IV PUSH 12/21/17 15:00 (Lopressor Inj) 2.5 mg Q1H PRN IV PUSH 12/21/17 15:00 Potassium Chloride 100 ml @ 50 mls/hr UNSCH PRN IV 12/21/17 15:00 Potassium Chloride 100 ml @ 50 mls/hr UNSCH PRN IV 12/21/17 15:00 Potassium Chloride 100 ml @ 50 mls/hr UNSCH PRN IV 12/21/17 15:00 (KCl) 20 meq UNSCH PRN PO 12/21/17 15:00 (KCl) 40 meq UNSCH PRN PO 12/21/17 15:00 Magnesium Sulfate 2 gm/Sodium Chloride 104 ml @ 100 mls/hr UNSCH PRN IV 12/21/17 15:00 Magnesium Sulfate 2 gm/Sodium Chloride 104 ml @ 50 mls/hr UNSCH PRN IV 12/21/17 15:00 Calcium Chloride 1 gm/Sodium Chloride 110 ml @ 100 mls/hr UNSCH PRN IV 12/21/17 15:00 12/21/17 15:53 (Calcium Chloride Inj) 0.5 gm UNSCH PRN IV PUSH 12/21/17 15:00 Insulin Human Regular 100 units/ Sodium Chloride 100 ml @ 3 mls/hr TITRATE PRN IV 12/21/17 15:00 12/21/17 16:15 (D50w (Vial) Inj) 50 ml UNSCH PRN IV PUSH 12/21/17 15:00 (Sodium Bicarbonate 8.4% Inj) 50 meq UNSCH PRN IV PUSH 12/21/17 15:00 (Sodium Bicarbonate 8.4% Inj) 100 meq UNSCH PRN IV PUSH 12/21/17 15:00 (Duoneb Neb) 1 ampule Q6HR NEB NEB 12/21/17 16:00 (Duoneb Neb) 1 ampule Q2HR NEB PRN NEB 12/21/17 15:00 (Racepinephrine 2.25% Neb) 0.5 ml UNSCH X1 PRN NEB 12/21/17 15:00 12/22/17 14:59 Vital Signs / I&O Vital Signs Date Time Temp Pulse Resp B/P (MAP) Pulse Ox O2 Delivery O2 Flow Rate FiO2 12/21/17 17:15 95 Nasal Cannula 4.00 12/21/17 17:15 50 12/21/17 17:15 95 Nasal Cannula 4 12/21/17 17:15 94 Nasal Cannula 4.00 12/21/17 16:15 80 12/21/17 16:00 98 Mechanical Ventilator 80 12/21/17 15:19 97.3 75 13 92/58 (69) 82 103/58 (73) 12/21/17 15:19 82 100 12/21/17 15:19 97.3 12/21/17 15:19 100 12/21/17 15:19 75 12/21/17 07:00 70 12/21/17 07:00 95 Nasal Cannula 2.00 12/21/17 07:00 99.1 70 20 142/75 (97) 95 12/21/17 04:00 62 12/21/17 04:00 99.1 63 16 130/84 (99) 97 12/21/17 04:00 97 Nasal Cannula 2.00 12/21/17 00:00 70 12/21/17 00:00 98.2 71 18 123/73 (90) 97 12/21/17 00:00 97 Nasal Cannula 2.00 12/20/17 22:01 97 Nasal Cannula 2.00 I/O 12/20/17 12/20/17 12/20/17 12/21/17 12/21/17 12/21/17 07:00 15:00 23:00 07:00 15:00 23:00 Intake Total 1000 ml 1145 ml 4000.5 ml Output Total 1000 ml 2550 ml Balance 1000 ml 145 ml 1450.5 ml Intake Oral 240 ml IV Total 1000 ml 905 ml 820.5 ml Autotransfusion 680 ml Other 2500 ml Output Urine Total 1000 ml 850 ml Gastric Drainage Total 0 ml Chest Tube Drainage Total 140 ml Estimated Blood Loss 1560 ml # Bowel Movements 0 0 Physical Exam GENERAL: SKIN: Warm and dry. HEAD: Normocephalic. EYES: No scleral icterus. No injection or drainage. NECK: Supple, trachea midline. No JVD or lymphadenopathy. CARDIOVASCULAR: Regular rate and rhythm without murmurs, gallops, or rubs. RESPIRATORY: Breath sounds equal bilaterally. No accessory muscle use. GASTROINTESTINAL: Abdomen soft, non-tender, nondistended. MUSCULOSKELETAL: No cyanosis, or edema. BACK: Nontender without obvious deformity. No CVA tenderness. Laboratory Laboratory Tests Test 12/20/17 22:13 12/21/17 00:30 12/21/17 03:17 12/21/17 03:23 Troponin I 0.10 NG/ML Urine Color YELLOW Urine Turbidity CLEAR Urine pH 5.5 Urine Specific [place] 1.038 Urine Protein NEG mg/dL Urine Glucose (UA) NEG mg/dL Urine Ketones 10 mg/dL Urine Occult Blood NEG Urine Nitrite NEG Urine Bilirubin NEG Urine Urobilinogen LESS THAN 2.0 MG/DL Urine Leukocyte Esterase NEG Urine Squamous Epithelial Cells <1 /hpf Urine Mucus FEW /lpf Microscopic Urinalysis Comment CULT NOT INDICATED Nasal Screen MRSA (PCR) MRSA NOT DETECTED White Blood Count 6.0 TH/MM3 Red Blood Count 3.76 MIL/MM3 Hemoglobin 12.3 GM/DL Hematocrit 36.2 % Mean Corpuscular Volume 96.1 FL Mean Corpuscular Hemoglobin 32.7 PG Mean Corpuscular Hemoglobin Concent 34.0 % Red Cell Distribution Width 13.6 % Platelet Count 159 TH/MM3 Mean Platelet Volume 8.2 FL Neutrophils (%) (Auto) 78.4 % Lymphocytes (%) (Auto) 12.2 % Monocytes (%) (Auto) 7.2 % Eosinophils (%) (Auto) 1.7 % Basophils (%) (Auto) 0.5 % Neutrophils # (Auto) 4.7 TH/MM3 Lymphocytes # (Auto) 0.7 TH/MM3 Monocytes # (Auto) 0.4 TH/MM3 Eosinophils # (Auto) 0.1 TH/MM3 Basophils # (Auto) 0.0 TH/MM3 CBC Comment DIFF FINAL Differential Comment Activated Partial Thromboplast Time 33.5 SEC Blood Urea Nitrogen 22 MG/DL Creatinine 1.20 MG/DL Random Glucose 78 MG/DL Total Protein 6.3 GM/DL Albumin 3.1 GM/DL Calcium Level 8.4 MG/DL Magnesium Level 1.9 MG/DL Alkaline Phosphatase 45 U/L Aspartate Amino Transf (AST/SGOT) 15 U/L Alanine Aminotransferase (ALT/SGPT) 20 U/L Total Bilirubin 0.6 MG/DL Sodium Level 143 MEQ/L Potassium Level 3.9 MEQ/L Chloride Level 112 MEQ/L Carbon Dioxide Level 20.9 MEQ/L Anion Gap 10 MEQ/L Estimat Glomerular Filtration Rate 62 ML/MIN B-Type Natriuretic Peptide 463 PG/ML Triglycerides Level 64 MG/DL Cholesterol Level 106 MG/DL LDL Cholesterol 58 MG/DL HDL Cholesterol 35.7 MG/DL Cholesterol/HDL Ratio 2.96 RATIO Imaging Last 24 hours Impressions Chest X-Ray 12/21/17 0000 Signed Impressions: Service Date/Time: Thursday, December 21, 2017 16:30 - CONCLUSION: Mild parenchymal edema. Satisfactory support line and tube positioning. Kwabena Bolivar MD Assessment and Plan Problem List: (1) Non-STEMI (non-ST elevated myocardial infarction) ICD Codes: I21.4 - Non-ST elevation (NSTEMI) myocardial infarction Status: Acute (2) HTN (hypertension) ICD Codes: I10 - Essential (primary) hypertension (3) Hepatitis B ICD Codes: B19.10 - Unspecified viral hepatitis B without hepatic coma (4) Hepatitis C ICD Codes: B19.20 - Unspecified viral hepatitis C without hepatic coma (5) CAD (coronary artery disease) ICD Codes: I25.10 - Atherosclerotic heart disease of [place] coronary artery without angina pectoris (6) Hyperlipidemia ICD Codes: E78.5 - Hyperlipidemia, unspecified (7) Tobacco abuse ICD Codes: Z72.0 - Tobacco use Status: Acute (8) S/P CABG (coronary artery bypass graft) ICD Codes: Z95.1 - Presence of aortocoronary bypass graft (9) Renal insufficiency ICD Codes: N28.9 - Disorder of kidney and ureter, unspecified Assessment and Plan 1.) POD #0 cabg - stable, continue aspirin, pravachol and metoprolol Problem Qualifiers (1) HTN (hypertension): Qualified Codes: I10 - Essential (primary) hypertension (2) Hepatitis B: (3) Hepatitis C: (4) CAD (coronary artery disease): Qualified Codes: I25.110 - Atherosclerotic heart disease of [place] coronary artery with unstable angina pectoris (5) Hyperlipidemia: Qualified Codes: E78.5 - Hyperlipidemia, unspecified Alex Shore MD December 21, 2017 21:22
[2017-12-21] MEDS: RESP: ALBUTEROL 2.5 MG/IPRATROPIUM 0.5 MG NEB (SCH) NEB (21:35)
[2017-12-21] MEDS: PRAVASTATIN SOD 80 MG TAB PO SCH (21:41)
[2017-12-21] MEDS: AMIODARONE 200 MG TAB PO SCH (21:41)
[2017-12-22] VITALS (12 sets, daily range): BP systolic 109–138; BP diastolic 60–85; PULSE 68–89; RESP 14–18; TEMP 98.3–99; O2SAT 96–98
[2017-12-22] MEDS: ACETAMINOPHEN 1000 MG/100 ML 100 ML IV SCH ×2 (03:00→08:13)
[2017-12-22] MEDS: SODIUM CHLOR 0.9% 1000 ML INJ 1,000 ML IV SCH ×2 (03:15→15:10)
[2017-12-22] MEDS: RESP: ALBUTEROL 2.5 MG/IPRATROPIUM 0.5 MG NEB (SCH) NEB ×4 (03:21→21:12)
[2017-12-22 04:55] LABS: AUTOMATED NEUTROPHIL # 7.6 TH/MM3 (1.8-7.7); BASOPHIL % 0.2 % (0.0-2.0); HEMATOCRIT 29.1 % (39.0-51.0); HEMOGLOBIN 9.9 GM/DL (13.0-17.0); LYMPH % 6.2 % (9.0-44.0); LYMPHOCYTE # 0.5 TH/MM3 (1.0-4.8); MEAN CELL VOLUME 96.1 FL (80.0-100.0); MEAN CORPUSCULAR HEMOGLOBIN 32.8 PG (27.0-34.0); MEAN CORPUSCULAR HGB CONC 34.1 % (32.0-36.0); MEAN PLATELET VOLUME 8.4 FL (7.0-11.0); MONO % 6.6 % (0.0-8.0); MONOCYTE # 0.6 TH/MM3 (0-0.9); PLATELET COUNT 101 TH/MM3 (150-450); RED BLOOD COUNT 3.03 MIL/MM3 (4.50-5.90); RED CELL DISTRIBUTION WIDTH 13.7 % (11.6-17.2); WHITE BLOOD COUNT 8.7 TH/MM3 (4.0-11.0)
[2017-12-22 05:34] LABS: BICARBONATE 25.5 MEQ/L (21.0-32.0); CALCIUM 8.2 MG/DL (8.5-10.1); CREATININE 1.61 MG/DL (0.60-1.30); MAGNESIUM 2.8 MG/DL (1.5-2.5)
--- NOTE | 2017-12-22 06:01 | RADRPT ---
EXAM DATE/TIME: 12/22/2017 06:20 [facility] COMPARISON: CHEST SINGLE AP, December 21, 2017, 16:30. INDICATIONS : Shortness of breath, status post extubation. MEDICAL HISTORY : Cardiovascular disease. Myocardial infarction. Hypertension. Hep B and C SURGICAL HISTORY : Coronary artery stent. CABG. ENCOUNTER: Subsequent ACUITY: 3 days PAIN SCORE: Non-responsive. LOCATION: Bilateral chest FINDINGS: A single AP semierect view of the chest was obtained and demonstrates the patient is status post inte rval extubation. The mediastinal chest and left-sided chest tube remain in place with no pneumothorax . The right internal jugular central venous line remains in place. The heart size is at the upper [place] its of normal with mild interval improvement in the previously noted pulmonary opacity. CONCLUSION: 1. Status post extubation. 2. Interval improvement in pulmonary edema. Leonard Guajardo MD on December 22, 2017 at 5:56 Board Certified Radiologist. This report was verified electronically.
[2017-12-22] MEDS: PANTOPRAZOLE SOD 40 MG DELAYED RELEASE TAB PO SCH (06:29)
[2017-12-22] MEDS: AMIODARONE 200 MG TAB PO SCH ×3 (06:29→21:45)
[2017-12-22] MEDS: SODIUM CHLORIDE 0.9% FLUSH 10 ML FLUSH IV FLUSH SCH ×5 (08:13→21:55)
[2017-12-22] MEDS: ASPIRIN EC 81 MG TABEC PO SCH (08:14)
[2017-12-22] MEDS: METOPROLOL TARTRATE 25 MG TAB PO SCH ×2 (08:14→21:44)
[2017-12-22] MEDS: CHOLECALCIFEROL (VIT D3) 1000 UNIT TAB PO SCH (08:14)
[2017-12-22] MEDS: ENTECAVIR 0.5 MG TAB PO SCH (08:14)
[2017-12-22] MEDS: DOCUSATE SODIUM 50 MG/SENNA 8.6 MG TAB PO SCH (08:14)
[2017-12-22] MEDS: ASPIRIN 81 MG CHEW TAB PO SCH (08:14)
--- NOTE | 2017-12-22 08:41 | EKG ---
Date Performed: 12/20/2017 Time Performed: 16:09:25 PTAGE: 62 years EKG: Sinus rhythm WITH OCCASIONAL VENTRICULAR PREMATURE COMPLEXES BORDERLINE LEFT AXIS DEVIATION MINIMAL ST DEPRESSION BORDERLINE ECG PREVIOUS TRACING : 12/20/2017 09.58 DOCTOR: Parish Coy Interpretating Date/Time 12/22/2017 08:38:54
[2017-12-22] MEDS: MUPIROCIN 2% OINT 1 APPLIC/GM SYR EACH NARE SCH ×2 (09:00→21:00)
[2017-12-22] MEDS ORDERED: BISACODYL 10 MG SUPP RECTAL PRN (11:00)
[2017-12-22] MEDS ORDERED: GLUCAGON 1 MG/ML VIAL OTHER PRN (11:00)
[2017-12-22] MEDS ORDERED: DEXTROSE 50% IN WATER 50 ML VIAL(D50) IV PUSH PRN (11:00)
--- NOTE | 2017-12-22 11:12 | PD.CAR.PN ---
CVT Progress Note CVT: POD #: 1 Subjective/Hospital Course: Called to see this 62yo male who is admitted with NSTEMI. He underwent LHC this evening and found to have left main and 3 vessel CAD. He has renal insufficiency with Cr=1.6 and h/o hepatitis B and C. 12/22/17 Doing well s/p CABG x 6. no complaints Objective: Vital Signs Date Time Temp Pulse Resp B/P (MAP) Pulse Ox O2 Delivery O2 Flow Rate FiO2 12/22/17 09:48 96 Nasal Cannula 2.00 12/22/17 08:43 14 12/22/17 07:00 98 Nasal Cannula 3.00 12/22/17 07:00 74 12/22/17 07:00 99.0 74 14 115/65 (82) 98 125/60 (81) 12/22/17 03:30 71 12/22/17 03:21 98 Nasal Cannula 2.00 12/22/17 03:15 98.9 72 18 129/74 (92) 98 138/65 (89) 12/22/17 03:15 98 Nasal Cannula 2.00 12/21/17 23:40 72 12/21/17 23:15 99.0 76 18 112/70 (84) 98 131/67 (88) 12/21/17 23:15 99 Nasal Cannula 3.00 12/21/17 19:32 98.6 12/21/17 19:30 98.6 70 16 116/75 (89) 95 130/73 (92) 12/21/17 19:30 95 Nasal Cannula 4.00 12/21/17 19:00 74 12/21/17 17:15 95 Nasal Cannula 4.00 12/21/17 17:15 50 12/21/17 17:15 95 Nasal Cannula 4 12/21/17 17:15 94 Nasal Cannula 4.00 12/21/17 16:55 98 60 12/21/17 16:16 98 80 12/21/17 16:15 80 12/21/17 16:00 98 Mechanical Ventilator 80 12/21/17 15:47 97 100 12/21/17 15:30 94 100 12/21/17 15:19 97.3 75 13 92/58 (69) 82 103/58 (73) 12/21/17 15:19 82 100 12/21/17 15:19 97.3 12/21/17 15:19 100 12/21/17 15:19 75 12/21/17 15:18 94 100 Labs: Laboratory Tests Test 12/22/17 04:25 White Blood Count 8.7 TH/MM3 (4.0-11.0) Red Blood Count 3.03 MIL/MM3 (4.50-5.90) Hemoglobin 9.9 GM/DL (13.0-17.0) Hematocrit 29.1 % (39.0-51.0) Mean Corpuscular Volume 96.1 FL (80.0-100.0) Mean Corpuscular Hemoglobin 32.8 PG (27.0-34.0) Mean Corpuscular Hemoglobin Concent 34.1 % (32.0-36.0) Red Cell Distribution Width 13.7 % (11.6-17.2) Platelet Count 101 TH/MM3 (150-450) Mean Platelet Volume 8.4 FL (7.0-11.0) Neutrophils (%) (Auto) 87.0 % (16.0-70.0) Lymphocytes (%) (Auto) 6.2 % (9.0-44.0) Monocytes (%) (Auto) 6.6 % (0.0-8.0) Eosinophils (%) (Auto) 0.0 % (0.0-4.0) Basophils (%) (Auto) 0.2 % (0.0-2.0) Neutrophils # (Auto) 7.6 TH/MM3 (1.8-7.7) Lymphocytes # (Auto) 0.5 TH/MM3 (1.0-4.8) Monocytes # (Auto) 0.6 TH/MM3 (0-0.9) Eosinophils # (Auto) 0.0 TH/MM3 (0-0.4) Basophils # (Auto) 0.0 TH/MM3 (0-0.2) CBC Comment DIFF FINAL Differential Comment Blood Urea Nitrogen 27 MG/DL (7-18) Creatinine 1.61 MG/DL (0.60-1.30) Random Glucose 101 MG/DL (74-106) Calcium Level 8.2 MG/DL (8.5-10.1) Magnesium Level 2.8 MG/DL (1.5-2.5) Sodium Level 145 MEQ/L (136-145) Potassium Level 4.6 MEQ/L (3.5-5.1) Chloride Level 111 MEQ/L (98-107) Carbon Dioxide Level 25.5 MEQ/L (21.0-32.0) Anion Gap 9 MEQ/L (5-15) Estimat Glomerular Filtration Rate 44 ML/MIN (>89) Result Diagram: 12/22/17 0425 12/22/17 0425 Imaging: Last 24 hours Impressions Chest X-Ray 12/22/17 0500 Signed Impressions: Service Date/Time: Friday, December 22, 2017 06:20 - CONCLUSION: 1. Status post extubation. 2. Interval improvement in pulmonary edema. Leonard Guajardo MD Cardiovascular: RRR Telemetry: NSR Pulmonary: CTA GI/: NABS Incision: dry and intact CT: ~250 overnight Plan: Transfer to stepdown Advance diet Encourage ambulation diurese Continue chest tubes one more day Remove soto (1) Non-STEMI (non-ST elevated myocardial infarction) (2) HTN (hypertension) (3) Hepatitis B (4) Hepatitis C (5) CAD (coronary artery disease) (6) Hyperlipidemia (7) Tobacco abuse (8) S/P CABG (coronary artery bypass graft) (9) Renal insufficiency Problem Qualifiers (1) HTN (hypertension): Qualified Codes: I10 - Essential (primary) hypertension (2) Hepatitis B: (3) Hepatitis C: (4) CAD (coronary artery disease): Qualified Codes: I25.110 - Atherosclerotic heart disease of [place] coronary artery with unstable angina pectoris (5) Hyperlipidemia: Qualified Codes: E78.5 - Hyperlipidemia, unspecified Monique Noguera MD December 22, 2017 11:12
[2017-12-22] MEDS ORDERED: SOD PHOSPHATE/SOD BIPHOSPHATE (ADULT) ENEMA 133ML RECTAL PRN (11:30)
--- NOTE | 2017-12-22 11:46 | PD.CARD.PN ---
Subjective Subjective Remarks sitting in chair in nad Objective Medications Current Medications Medications (Trade) Dose Ordered Sig/Kathe Route Start Time Stop Time Status Last Admin (Narcan Inj) 0.4 mg UNSCH PRN IV PUSH 12/20/17 14:00 (Milk Of Magnesia Liq) 30 ml Q12H PRN PO 12/20/17 14:00 (Senokot) 17.2 mg Q12H PRN PO 12/20/17 14:00 (Lactulose Liq) 30 ml DAILY PRN PO 12/20/17 14:00 (Vitamin D3) 2,000 units DAILY PO 12/21/17 09:00 12/22/17 08:14 (Baraclude) 0.5 mg DAILY PO 12/21/17 09:00 12/22/17 08:14 (Lopressor) 25 mg Q12HR PO 12/20/17 21:00 12/22/17 08:14 (Pravachol) 80 mg HS PO 12/20/17 21:00 12/21/17 21:41 Sodium Chloride 1,000 ml @ 84 mls/hr [id number] IV 12/20/17 15:30 12/20/17 20:47 Cefazolin Sodium 500 mg/Sodium Chloride 505 ml @ 0 mls/hr WASTE MANAGEMENT SPECIALIST IRRIGATION 12/20/17 22:30 12/27/17 22:29 12/21/17 10:05 Cefazolin Sodium/ Dextrose 50 ml @ 150 mls/hr WASTE MANAGEMENT SPECIALIST IV 12/20/17 22:30 12/27/17 22:29 12/21/17 09:10 (Lopressor) 12.5 mg WASTE MANAGEMENT SPECIALIST PO 12/20/17 22:30 12/27/17 22:29 (Bactroban Nasal 2% Oint) 1 applic BID EACH NARE 12/21/17 09:00 12/26/17 08:59 (Hibiclens 4% Top Soln) 1 applic WASTE MANAGEMENT SPECIALIST TOPICAL 12/20/17 22:30 12/27/17 22:29 Papaverine HCl 60 mg/Nitroglycerin 100 mcg/Verapamil HCl 100 mg/Sodium Chloride 100 ml @ 0 mls/hr WASTE MANAGEMENT SPECIALIST IRRIGATION 12/21/17 07:30 12/27/17 22:29 12/21/17 10:13 (NS Flush) 2 ml BID IV FLUSH 12/21/17 21:00 (NS Flush) 2 ml UNSCH PRN IV FLUSH 12/21/17 15:00 Dexmedetomidine HCl 200 mcg/ Sodium Chloride 52 ml @ 3.97 mls/hr TITRATE PRN IV 12/21/17 15:00 12/21/17 15:19 Clevidipine 50 ml @ 2 mls/hr TITRATE PRN IV 12/21/17 15:00 Albumin Human 250 ml @ 250 mls/hr UNSCH PRN IV 12/21/17 15:00 12/22/17 00:19 Lactated Ringer's 500 ml @ 500 mls/hr Q1H PRN IV 12/21/17 14:50 12/21/17 15:54 Cefazolin Sodium 1000 mg/Sodium Chloride 100 ml @ 200 mls/hr Q8H IV 12/21/17 18:00 12/23/17 02:29 12/22/17 10:08 (Aspirin Chew) 81 mg DAILY PO 12/22/17 09:00 12/22/17 08:14 (Protonix) 40 mg DAILY@06 PO 12/22/17 06:00 12/22/17 06:29 (Cordarone) 400 mg Q8HR PO 12/21/17 22:00 12/22/17 06:29 (Tylenol) 650 mg Q4H PRN PO 12/21/17 15:00 (Tylenol Supp) 650 mg Q4H PRN RECTAL 12/21/17 15:00 (Percocet 5-325 Mg) 1 tab Q3H PRN PO 12/21/17 15:00 (fentaNYL INJ) 25 mcg Q1H PRN IV PUSH 12/21/17 15:00 (Zofran Inj) 4 mg Q6H PRN IV PUSH 12/21/17 15:00 (Apresoline Inj) 10 mg Q4H PRN IV PUSH 12/21/17 15:00 (Lopressor Inj) 2.5 mg Q1H PRN IV PUSH 12/21/17 15:00 Potassium Chloride 100 ml @ 50 mls/hr UNSCH PRN IV 12/21/17 15:00 Potassium Chloride 100 ml @ 50 mls/hr UNSCH PRN IV 12/21/17 15:00 Potassium Chloride 100 ml @ 50 mls/hr UNSCH PRN IV 12/21/17 15:00 (KCl) 20 meq UNSCH PRN PO 12/21/17 15:00 (KCl) 40 meq UNSCH PRN PO 12/21/17 15:00 Magnesium Sulfate 2 gm/Sodium Chloride 104 ml @ 100 mls/hr UNSCH PRN IV 12/21/17 15:00 Magnesium Sulfate 2 gm/Sodium Chloride 104 ml @ 50 mls/hr UNSCH PRN IV 12/21/17 15:00 Calcium Chloride 1 gm/Sodium Chloride 110 ml @ 100 mls/hr UNSCH PRN IV 12/21/17 15:00 12/21/17 15:53 (Calcium Chloride Inj) 0.5 gm UNSCH PRN IV PUSH 12/21/17 15:00 (D50w (Vial) Inj) 50 ml UNSCH PRN IV PUSH 12/21/17 15:00 (Sodium Bicarbonate 8.4% Inj) 50 meq UNSCH PRN IV PUSH 12/21/17 15:00 (Sodium Bicarbonate 8.4% Inj) 100 meq UNSCH PRN IV PUSH 12/21/17 15:00 (Duoneb Neb) 1 ampule Q2HR NEB PRN NEB 12/21/17 15:00 (Racepinephrine 2.25% Neb) 0.5 ml UNSCH X1 PRN NEB 12/21/17 15:00 12/22/17 14:59 (Colace) 100 mg BID PO 12/22/17 21:00 (Theragran M Tab) 1 tab DAILY PO 12/23/17 09:00 (Milk Of Magnesia Liq) 30 ml DAILY PO 12/23/17 09:00 (Dulcolax Supp) 10 mg UNSCH PRN RECTAL 12/22/17 11:00 (Miralax) 17 gm DAILY PO 12/23/17 09:00 (Senokot) 8.6 mg HS PO 12/22/17 21:00 (NovoLOG SUPPLEMENTAL SCALE) 1 02,06,10,14,18,22 SQ 12/22/17 14:00 (D50w (Vial) Inj) 50 ml UNSCH PRN IV PUSH 12/22/17 11:00 (Glucagon Inj) 1 mg UNSCH PRN OTHER 12/22/17 11:00 (Lasix Inj) 40 mg DAILY IV PUSH 12/22/17 11:30 (Fleets Enema (Adult)) 133 ml UNSCH PRN RECTAL 12/22/17 11:30 (Duoneb Neb) 1 ampule Q6HR WHILE AWAKE NEB NEB 12/22/17 14:00 12/24/17 20:01 Vital Signs / I&O Vital Signs Date Time Temp Pulse Resp B/P (MAP) Pulse Ox O2 Delivery O2 Flow Rate FiO2 12/22/17 11:00 98.7 69 16 115/73 (87) 98 Arterial Line 12/22/17 11:00 71 12/22/17 11:00 98 Nasal Cannula 2.00 12/22/17 09:48 96 Nasal Cannula 2.00 12/22/17 08:43 14 12/22/17 07:00 98 Nasal Cannula 3.00 12/22/17 07:00 74 12/22/17 07:00 99.0 74 14 115/65 (82) 98 125/60 (81) 12/22/17 03:30 71 12/22/17 03:21 98 Nasal Cannula 2.00 12/22/17 03:15 98.9 72 18 129/74 (92) 98 138/65 (89) 12/22/17 03:15 98 Nasal Cannula 2.00 12/21/17 23:40 72 12/21/17 23:15 99.0 76 18 112/70 (84) 98 131/67 (88) 12/21/17 23:15 99 Nasal Cannula 3.00 12/21/17 19:32 98.6 12/21/17 19:30 98.6 70 16 116/75 (89) 95 130/73 (92) 12/21/17 19:30 95 Nasal Cannula 4.00 12/21/17 19:00 74 12/21/17 17:15 95 Nasal Cannula 4.00 12/21/17 17:15 50 12/21/17 17:15 95 Nasal Cannula 4 12/21/17 17:15 94 Nasal Cannula 4.00 12/21/17 16:55 98 60 12/21/17 16:16 98 80 12/21/17 16:15 80 12/21/17 16:00 98 Mechanical Ventilator 80 12/21/17 15:47 97 100 12/21/17 15:30 94 100 12/21/17 15:19 97.3 75 13 92/58 (69) 82 103/58 (73) 12/21/17 15:19 82 100 12/21/17 15:19 97.3 12/21/17 15:19 100 12/21/17 15:19 75 12/21/17 15:18 94 100 I/O 12/21/17 12/21/17 12/21/17 12/22/17 12/22/17 12/22/17 07:00 15:00 23:00 07:00 15:00 23:00 Intake Total 1145 ml 4100.5 ml 1650 ml 100 ml Output Total 1000 ml 2550 ml 1060 ml Balance 145 ml 1550.5 ml 590 ml 100 ml Intake Oral 240 ml 1200 ml IV Total 905 ml 920.5 ml 450 ml 100 ml Autotransfusion 680 ml Other 2500 ml Output Urine Total 1000 ml 850 ml 710 ml Gastric Drainage Total 0 ml Chest Tube Drainage Total 140 ml 350 ml Estimated Blood Loss 1560 ml # Bowel Movements 0 0 Physical Exam GENERAL: SKIN: Warm and dry. HEAD: Normocephalic. EYES: No scleral icterus. No injection or drainage. NECK: Supple, trachea midline. No JVD or lymphadenopathy. CARDIOVASCULAR: Regular rate and rhythm without murmurs, gallops, or rubs. RESPIRATORY: Breath sounds equal bilaterally. No accessory muscle use. GASTROINTESTINAL: Abdomen soft, non-tender, nondistended. MUSCULOSKELETAL: No cyanosis, or edema. BACK: Nontender without obvious deformity. No CVA tenderness. Laboratory Laboratory Tests Test 12/22/17 04:25 White Blood Count 8.7 TH/MM3 Red Blood Count 3.03 MIL/MM3 Hemoglobin 9.9 GM/DL Hematocrit 29.1 % Mean Corpuscular Volume 96.1 FL Mean Corpuscular Hemoglobin 32.8 PG Mean Corpuscular Hemoglobin Concent 34.1 % Red Cell Distribution Width 13.7 % Platelet Count 101 TH/MM3 Mean Platelet Volume 8.4 FL Neutrophils (%) (Auto) 87.0 % Lymphocytes (%) (Auto) 6.2 % Monocytes (%) (Auto) 6.6 % Eosinophils (%) (Auto) 0.0 % Basophils (%) (Auto) 0.2 % Neutrophils # (Auto) 7.6 TH/MM3 Lymphocytes # (Auto) 0.5 TH/MM3 Monocytes # (Auto) 0.6 TH/MM3 Eosinophils # (Auto) 0.0 TH/MM3 Basophils # (Auto) 0.0 TH/MM3 CBC Comment DIFF FINAL Differential Comment Blood Urea Nitrogen 27 MG/DL Creatinine 1.61 MG/DL Random Glucose 101 MG/DL Calcium Level 8.2 MG/DL Magnesium Level 2.8 MG/DL Sodium Level 145 MEQ/L Potassium Level 4.6 MEQ/L Chloride Level 111 MEQ/L Carbon Dioxide Level 25.5 MEQ/L Anion Gap 9 MEQ/L Estimat Glomerular Filtration Rate 44 ML/MIN Imaging Last 24 hours Impressions Chest X-Ray 12/22/17 0500 Signed Impressions: Service Date/Time: Friday, December 22, 2017 06:20 - CONCLUSION: 1. Status post extubation. 2. Interval improvement in pulmonary edema. Leonard Guajardo MD Assessment and Plan Problem List: (1) Non-STEMI (non-ST elevated myocardial infarction) ICD Codes: I21.4 - Non-ST elevation (NSTEMI) myocardial infarction Status: Acute (2) HTN (hypertension) ICD Codes: I10 - Essential (primary) hypertension (3) Hepatitis B ICD Codes: B19.10 - Unspecified viral hepatitis B without hepatic coma (4) Hepatitis C ICD Codes: B19.20 - Unspecified viral hepatitis C without hepatic coma (5) CAD (coronary artery disease) ICD Codes: I25.10 - Atherosclerotic heart disease of [place] coronary artery without angina pectoris (6) Hyperlipidemia ICD Codes: E78.5 - Hyperlipidemia, unspecified (7) Tobacco abuse ICD Codes: Z72.0 - Tobacco use Status: Acute (8) S/P CABG (coronary artery bypass graft) ICD Codes: Z95.1 - Presence of aortocoronary bypass graft (9) Renal insufficiency ICD Codes: N28.9 - Disorder of kidney and ureter, unspecified Assessment and Plan 1.) POD #1 cabg - stable, continue aspirin, pravachol and metoprolol Problem Qualifiers (1) HTN (hypertension): Qualified Codes: I10 - Essential (primary) hypertension (2) Hepatitis B: (3) Hepatitis C: (4) CAD (coronary artery disease): Qualified Codes: I25.110 - Atherosclerotic heart disease of [place] coronary artery with unstable angina pectoris (5) Hyperlipidemia: Qualified Codes: E78.5 - Hyperlipidemia, unspecified Alex Shore MD December 22, 2017 11:46
[2017-12-22] MEDS: FUROSEMIDE 40 MG/4 ML VIAL IV PUSH SCH (11:49)
[2017-12-22] MEDS: INSULIN ASPART SUPPLEMENTAL SCALE SQ SCH ×3 (14:30→21:46)
--- NOTE | 2017-12-22 18:15 | EKG ---
Date Performed: 12/22/2017 Time Performed: 04:22:44 PTAGE: 62 years EKG: Sinus rhythm Leftward axis Abnormal R wave progression Abnormal ECG PREVIOUS TRACING : 12/20/2017 16.09 Compared to previous tracing, no PVCs present DOCTOR: Tania Barrios Interpretating Date/Time 12/22/2017 18:15:34
[2017-12-22] MEDS ORDERED: ACETAMINOPHEN 1000 MG/100 ML 100 ML IV PRN (20:45)
[2017-12-22] MEDS: PRAVASTATIN SOD 80 MG TAB PO SCH (21:44)
[2017-12-22] MEDS: SENNOSIDES 8.6 MG TAB PO SCH (21:44)
[2017-12-22] MEDS: DOCUSATE SODIUM 100 MG CAP PO SCH (21:44)
[2017-12-22] MEDS: TAMSULOSIN HCL 0.4 MG CAP PO SCH (21:54)
[2017-12-23] VITALS (19 sets, daily range): BP systolic 95–114; BP diastolic 54–65; PULSE 65–92; RESP 16–24; TEMP 98.3–100.5; O2SAT 93–97
[2017-12-23] MEDS: INSULIN ASPART SUPPLEMENTAL SCALE SQ SCH ×6 (02:26→21:22)
[2017-12-23] MEDS: SODIUM CHLOR 0.9% 1000 ML INJ 1,000 ML IV SCH ×2 (03:05→15:00)
[2017-12-23 04:38] LABS: BASOPHIL % 0.1 % (0.0-2.0); EOSINOPHIL % 0.1 % (0.0-4.0); HEMATOCRIT 25.9 % (39.0-51.0); LYMPH % 11.1 % (9.0-44.0); MEAN CELL VOLUME 95.8 FL (80.0-100.0); MEAN CORPUSCULAR HEMOGLOBIN 33.2 PG (27.0-34.0); MEAN CORPUSCULAR HGB CONC 34.7 % (32.0-36.0); MEAN PLATELET VOLUME 8.6 FL (7.0-11.0); MONO % 8.5 % (0.0-8.0); MONOCYTE # 0.7 TH/MM3 (0-0.9); NEUT % 80.2 % (16.0-70.0); PLATELET COUNT 95 TH/MM3 (150-450); RED CELL DISTRIBUTION WIDTH 13.9 % (11.6-17.2); WHITE BLOOD COUNT 8.7 TH/MM3 (4.0-11.0)
[2017-12-23 05:02] LABS: CALCIUM 7.8 MG/DL (8.5-10.1); CREATININE 1.61 MG/DL (0.60-1.30); MAGNESIUM 2.4 MG/DL (1.5-2.5)
[2017-12-23] MEDS: PANTOPRAZOLE SOD 40 MG DELAYED RELEASE TAB PO SCH (06:23)
[2017-12-23] MEDS: AMIODARONE 200 MG TAB PO SCH ×3 (06:23→21:20)
[2017-12-23] MEDS: CHOLECALCIFEROL (VIT D3) 1000 UNIT TAB PO SCH (08:46)
[2017-12-23] MEDS: ENTECAVIR 0.5 MG TAB PO SCH (08:46)
[2017-12-23] MEDS: TAMSULOSIN HCL 0.4 MG CAP PO SCH (08:47)
[2017-12-23] MEDS: MULTIVITAMINS/MINERALS THERAPEUTIC TAB PO SCH (08:47)
[2017-12-23] MEDS: DOCUSATE SODIUM 100 MG CAP PO SCH ×2 (08:47→21:20)
[2017-12-23] MEDS: ASPIRIN 81 MG CHEW TAB PO SCH (08:47)
[2017-12-23] MEDS: MAGNESIUM HYDROXIDE SUSP 30 ML CUP PO SCH (08:47)
[2017-12-23] MEDS: FUROSEMIDE 40 MG/4 ML VIAL IV PUSH SCH (08:48)
[2017-12-23] MEDS: METOPROLOL TARTRATE 25 MG TAB PO SCH ×2 (08:48→21:21)
[2017-12-23] MEDS: POLYETHYLENE GLYCOL 17 GM PKG PO SCH (08:48)
[2017-12-23] MEDS: SODIUM CHLORIDE 0.9% FLUSH 10 ML FLUSH IV FLUSH SCH ×2 (09:00→21:22)
[2017-12-23] MEDS: MUPIROCIN 2% OINT 1 APPLIC/GM SYR EACH NARE SCH ×2 (09:00→21:00)
[2017-12-23] MEDS: RESP: ALBUTEROL 2.5 MG/IPRATROPIUM 0.5 MG NEB (SCH) NEB (09:16)
--- NOTE | 2017-12-23 09:46 | PD.CAR.PN ---
CVT Progress Note CVT: POD #: 2 Subjective/Hospital Course: Called to see this 62yo male who is admitted with NSTEMI. He underwent LHC this evening and found to have left main and 3 vessel CAD. He has renal insufficiency with Cr=1.6 and h/o hepatitis B and C. 12/22/17 Doing well s/p CABG x 6. no complaints 12/23/17 Had some urinary retention last night. Ratliff placed and started on Flomax. Voiding trial today. Objective: Vital Signs Date Time Temp Pulse Resp B/P (MAP) Pulse Ox O2 Delivery O2 Flow Rate FiO2 12/23/17 09:30 93 21 12/23/17 09:15 97 Nasal Cannula 2.00 12/23/17 08:15 Nasal Cannula 2.00 12/23/17 03:14 98.3 69 16 110/65 (80) 97 12/23/17 03:14 97 Nasal Cannula 2.00 12/23/17 03:10 65 12/22/17 23:12 98 Nasal Cannula 2.00 12/22/17 23:12 98.7 81 16 109/66 (80) 98 12/22/17 23:00 68 12/22/17 21:13 97 Nasal Cannula 2.00 12/22/17 19:40 98.3 77 16 118/68 (85) 97 12/22/17 19:40 97 Nasal Cannula 2.00 12/22/17 19:00 77 12/22/17 15:00 98.6 89 14 138/85 (102) 98 12/22/17 15:00 89 12/22/17 15:00 97 Nasal Cannula 2.00 12/22/17 11:00 98.7 69 16 115/73 (87) 98 Arterial Line 12/22/17 11:00 71 12/22/17 11:00 98 Nasal Cannula 2.00 12/22/17 09:48 96 Nasal Cannula 2.00 Labs: Laboratory Tests Test 12/23/17 04:07 White Blood Count 8.7 TH/MM3 (4.0-11.0) Red Blood Count 2.70 MIL/MM3 (4.50-5.90) Hemoglobin 9.0 GM/DL (13.0-17.0) Hematocrit 25.9 % (39.0-51.0) Mean Corpuscular Volume 95.8 FL (80.0-100.0) Mean Corpuscular Hemoglobin 33.2 PG (27.0-34.0) Mean Corpuscular Hemoglobin Concent 34.7 % (32.0-36.0) Red Cell Distribution Width 13.9 % (11.6-17.2) Platelet Count 95 TH/MM3 (150-450) Mean Platelet Volume 8.6 FL (7.0-11.0) Neutrophils (%) (Auto) 80.2 % (16.0-70.0) Lymphocytes (%) (Auto) 11.1 % (9.0-44.0) Monocytes (%) (Auto) 8.5 % (0.0-8.0) Eosinophils (%) (Auto) 0.1 % (0.0-4.0) Basophils (%) (Auto) 0.1 % (0.0-2.0) Neutrophils # (Auto) 7.0 TH/MM3 (1.8-7.7) Lymphocytes # (Auto) 1.0 TH/MM3 (1.0-4.8) Monocytes # (Auto) 0.7 TH/MM3 (0-0.9) Eosinophils # (Auto) 0.0 TH/MM3 (0-0.4) Basophils # (Auto) 0.0 TH/MM3 (0-0.2) CBC Comment AUTO DIFF Blood Urea Nitrogen 32 MG/DL (7-18) Creatinine 1.61 MG/DL (0.60-1.30) Random Glucose 91 MG/DL (74-106) Calcium Level 7.8 MG/DL (8.5-10.1) Magnesium Level 2.4 MG/DL (1.5-2.5) Sodium Level 142 MEQ/L (136-145) Potassium Level 4.2 MEQ/L (3.5-5.1) Chloride Level 106 MEQ/L (98-107) Carbon Dioxide Level 27.0 MEQ/L (21.0-32.0) Anion Gap 9 MEQ/L (5-15) Estimat Glomerular Filtration Rate 44 ML/MIN (>89) Result Diagram: 12/23/1740612/23/17406 Cardiovascular: RRR Telemetry: NSR Pulmonary: CTA GI/: NABS, NT Incision: dry and intact CT: 120ml/12 hrs Plan: Remove chest tubes Stim BM Voiding trial Diurese Discharge planning. (1) Non-STEMI (non-ST elevated myocardial infarction) (2) HTN (hypertension) (3) Hepatitis B (4) Hepatitis C (5) CAD (coronary artery disease) (6) Hyperlipidemia (7) Tobacco abuse (8) S/P CABG (coronary artery bypass graft) (9) Renal insufficiency Problem Qualifiers (1) HTN (hypertension): Qualified Codes: I10 - Essential (primary) hypertension (2) Hepatitis B: (3) Hepatitis C: (4) CAD (coronary artery disease): Qualified Codes: I25.110 - Atherosclerotic heart disease of [place] coronary artery with unstable angina pectoris (5) Hyperlipidemia: Qualified Codes: E78.5 - Hyperlipidemia, unspecified Monique Noguera MD December 23, 2017 09:46
--- NOTE | 2017-12-23 16:51 | ECHRPT ---
Indication: CAD CONCLUSIONS The left ventricular systolic function is moderately reduced with an estimated ejection fraction in the range of 40-45%. Mild concentric left ventricular hypertrophy. Normal left ventricular size. Mitral annular calcification is present. Calcification of both mitral valve leaflets. Mild mitral valve regurgitation. Aortic sclerosis, leaflet calcification.. There is mild tricuspid valve regurgitation. The estimated pulmonary arterial pressure is 39 mmHg. BP: / HR: 76 Rhythm: Sinus MEASUREMENTS (Male / Female) Normal Values Technical Quality:Fair 2D ECHO LV Diastolic Diameter PLAX 4.6 cm 4.2 - 5.9 / 3.9 - 5.3 cm LV Systolic Diameter PLAX 3.7 cm IVS Diastolic Thickness 1.5 cm 0.6 - 1.0 / 0.6 - 0.9 cm LVPW Diastolic Thickness 1.0 cm 0.6 - 1.0 / 0.6 - 0.9 cm LV Relative Wall Thickness 0.5 RV Internal Dim ED PLAX 3.5 cm LVOT Diameter 2.3 cm LA Systolic Diameter LX 3.7 cm 3.0 - 4.0 / 2.7 - 3.8 cm M-MODE Aortic Root Diameter MM 3.1 cm LA Systolic Diameter MM 3.6 cm LA Ao Ratio MM 1.2 AV Cusp Separation MM 2.0 cm DOPPLER AV Peak Velocity 163.0 cm/s AV Peak Gradient 10.6 mmHg LVOT Peak Velocity 127.0 cm/s LVOT Peak Gradient 6.5 mmHg AV Area Cont Eq pk 3.2 cm MV Area PHT 3.2 cm Mitral E Point Velocity 125.0 cm/s Mitral A Point Velocity 44.4 cm/s Mitral E to A Ratio 2.8 LV E' Lateral Velocity 7.1 cm/s Mitral E to LV E' Lateral Ratio 17.6 LV E' Septal Velocity 6.6 cm/s Mitral E to LV E' Septal Ratio 18.9 TR Peak Velocity 267.0 cm/s TR Peak Gradient 28.5 mmHg Right Atrial Pressure 10.0 mmHg Pulmonary Artery Systolic Pressu 38.5 mmHg Right Ventricular Systolic Press 38.5 mmHg FINDINGS LEFT VENTRICLE The left ventricular systolic function is moderately reduced with an estimated ejection fraction in the range of 40-45%. There is diffuse global hypokinesis with distinct regional wall motion abnormalities. Mild concentric left ventricular hypertrophy. Normal left ventricular size. RIGHT VENTRICLE Normal right ventricular size and systolic function. LEFT ATRIUM The left atrial size is normal. RIGHT ATRIUM The right atrial size is normal. ATRIAL SEPTUM Normal atrial septal thickness without atrial level shunting by limited color doppler interrogation. AORTA The aortic root and proximal ascending aorta are normal in size on limited imaging. MITRAL VALVE Mitral annular calcification is present. Calcification of both mitral valve leaflets. Mild mitral valve regurgitation. AORTIC VALVE Trileaflet aortic valve. Calcification of the non-coronary cusp. TRICUSPID VALVE Structurally normal tricuspid valve. There is mild tricuspid valve regurgitation. The estimated pulmonary arterial pressure is 38.5 mmHg. PULMONARY VALVE Trivial pulmonary valve regurgitation. VESSELS The inferior vena cava is normal in size. PERICARDIUM No pericardial effusion. Tania Barrios MD, FACC (Electronically Signed) Final Date:23 Dec 2017 16:50
--- NOTE | 2017-12-23 19:18 | PD.CARD.PN ---
Subjective Subjective Remarks sitting in chair in nad Objective Medications Current Medications Medications (Trade) Dose Ordered Sig/Kathe Route Start Time Stop Time Status Last Admin (Narcan Inj) 0.4 mg UNSCH PRN IV PUSH 12/20/17 14:00 (Milk Of Magnesia Liq) 30 ml Q12H PRN PO 12/20/17 14:00 (Senokot) 17.2 mg Q12H PRN PO 12/20/17 14:00 (Lactulose Liq) 30 ml DAILY PRN PO 12/20/17 14:00 (Vitamin D3) 2,000 units DAILY PO 12/21/17 09:00 12/23/17 08:46 (Baraclude) 0.5 mg DAILY PO 12/21/17 09:00 12/23/17 08:46 (Lopressor) 25 mg Q12HR PO 12/20/17 21:00 12/22/17 21:44 (Pravachol) 80 mg HS PO 12/20/17 21:00 12/22/17 21:44 Sodium Chloride 1,000 ml @ 84 mls/hr [id number] IV 12/20/17 15:30 12/20/17 20:47 Cefazolin Sodium 500 mg/Sodium Chloride 505 ml @ 0 mls/hr JOURNALISM INSTRUCTOR IRRIGATION 12/20/17 22:30 12/27/17 22:29 12/21/17 10:05 Cefazolin Sodium/ Dextrose 50 ml @ 150 mls/hr JOURNALISM INSTRUCTOR IV 12/20/17 22:30 12/27/17 22:29 12/21/17 09:10 (Lopressor) 12.5 mg JOURNALISM INSTRUCTOR PO 12/20/17 22:30 12/27/17 22:29 (Bactroban Nasal 2% Oint) 1 applic BID EACH NARE 12/21/17 09:00 12/26/17 08:59 (Hibiclens 4% Top Soln) 1 applic JOURNALISM INSTRUCTOR TOPICAL 12/20/17 22:30 12/27/17 22:29 Papaverine HCl 60 mg/Nitroglycerin 100 mcg/Verapamil HCl 100 mg/Sodium Chloride 100 ml @ 0 mls/hr JOURNALISM INSTRUCTOR IRRIGATION 12/21/17 07:30 12/27/17 22:29 12/21/17 10:13 (NS Flush) 2 ml BID IV FLUSH 12/21/17 21:00 12/23/17 09:00 (NS Flush) 2 ml UNSCH PRN IV FLUSH 12/21/17 15:00 Albumin Human 250 ml @ 250 mls/hr UNSCH PRN IV 12/21/17 15:00 12/22/17 00:19 Lactated Ringer's 500 ml @ 500 mls/hr Q1H PRN IV 12/21/17 14:50 12/21/17 15:54 (Aspirin Chew) 81 mg DAILY PO 12/22/17 09:00 12/22/17 08:14 (Protonix) 40 mg DAILY@06 PO 12/22/17 06:00 12/23/17 06:23 (Cordarone) 400 mg Q8HR PO 12/21/17 22:00 12/23/17 06:23 (Tylenol) 650 mg Q4H PRN PO 12/21/17 15:00 (Tylenol Supp) 650 mg Q4H PRN RECTAL 12/21/17 15:00 (Percocet 5-325 Mg) 1 tab Q3H PRN PO 12/21/17 15:00 (fentaNYL INJ) 25 mcg Q1H PRN IV PUSH 12/21/17 15:00 (Zofran Inj) 4 mg Q6H PRN IV PUSH 12/21/17 15:00 (Apresoline Inj) 10 mg Q4H PRN IV PUSH 12/21/17 15:00 12/22/17 17:20 (Lopressor Inj) 2.5 mg Q1H PRN IV PUSH 12/21/17 15:00 Potassium Chloride 100 ml @ 50 mls/hr UNSCH PRN IV 12/21/17 15:00 Potassium Chloride 100 ml @ 50 mls/hr UNSCH PRN IV 12/21/17 15:00 Potassium Chloride 100 ml @ 50 mls/hr UNSCH PRN IV 12/21/17 15:00 (KCl) 20 meq UNSCH PRN PO 12/21/17 15:00 (KCl) 40 meq UNSCH PRN PO 12/21/17 15:00 Magnesium Sulfate 2 gm/Sodium Chloride 104 ml @ 100 mls/hr UNSCH PRN IV 12/21/17 15:00 Magnesium Sulfate 2 gm/Sodium Chloride 104 ml @ 50 mls/hr UNSCH PRN IV 12/21/17 15:00 Calcium Chloride 1 gm/Sodium Chloride 110 ml @ 100 mls/hr UNSCH PRN IV 12/21/17 15:00 12/21/17 15:53 (Calcium Chloride Inj) 0.5 gm UNSCH PRN IV PUSH 12/21/17 15:00 (D50w (Vial) Inj) 50 ml UNSCH PRN IV PUSH 12/21/17 15:00 (Sodium Bicarbonate 8.4% Inj) 50 meq UNSCH PRN IV PUSH 12/21/17 15:00 (Sodium Bicarbonate 8.4% Inj) 100 meq UNSCH PRN IV PUSH 12/21/17 15:00 (Duoneb Neb) 1 ampule Q2HR NEB PRN NEB 12/21/17 15:00 (Colace) 100 mg BID PO 12/22/17 21:00 12/23/17 08:47 (Theragran M Tab) 1 tab DAILY PO 12/23/17 09:00 12/23/17 08:47 (Milk Of Magnesia Liq) 30 ml DAILY PO 12/23/17 09:00 12/23/17 08:47 (Dulcolax Supp) 10 mg UNSCH PRN RECTAL 12/22/17 11:00 (Miralax) 17 gm DAILY PO 12/23/17 09:00 12/23/17 08:48 (Senokot) 8.6 mg HS PO 12/22/17 21:00 12/22/17 21:44 (NovoLOG SUPPLEMENTAL SCALE) 1 02,06,10,14,18,22 SQ 12/22/17 14:00 12/23/17 18:04 (Glucagon Inj) 1 mg UNSCH PRN OTHER 12/22/17 11:00 (Lasix Inj) 40 mg DAILY IV PUSH 12/22/17 11:30 12/22/17 11:49 (Fleets Enema (Adult)) 133 ml UNSCH PRN RECTAL 12/22/17 11:30 (Flomax) 0.4 mg DAILY PO 12/22/17 19:05 12/23/17 08:47 Acetaminophen 100 ml @ 400 mls/hr Q8H PRN IV 12/22/17 20:45 12/22/17 21:54 Vital Signs / I&O Vital Signs Date Time Temp Pulse Resp B/P (MAP) Pulse Ox O2 Delivery O2 Flow Rate FiO2 12/23/17 18:00 88 5/13/18 17:00 92 12/23/17 16:00 78 12/23/17 15:00 95 Room Air 12/23/17 15:00 74 12/23/17 15:00 98.3 79 20 109/55 (73) 95 12/23/17 14:00 74 12/23/17 13:00 78 12/23/17 12:00 76 12/23/17 11:00 88 12/23/17 11:00 98.6 88 20 106/58 (74) 97 12/23/17 11:00 97 Room Air 12/23/17 09:30 93 21 12/23/17 09:15 97 Nasal Cannula 2.00 12/23/17 08:15 Nasal Cannula 2.00 12/23/17 07:00 98.4 69 24 95/54 (68) 96 12/23/17 07:00 69 12/23/17 03:14 98.3 69 16 110/65 (80) 97 12/23/17 03:14 97 Nasal Cannula 2.00 12/23/17 03:10 65 12/22/17 23:12 98 Nasal Cannula 2.00 12/22/17 23:12 98.7 81 16 109/66 (80) 98 12/22/17 23:00 68 12/22/17 21:13 97 Nasal Cannula 2.00 12/22/17 19:40 98.3 77 16 118/68 (85) 97 12/22/17 19:40 97 Nasal Cannula 2.00 I/O 12/22/17 12/22/17 12/22/17 12/23/17 12/23/17 12/23/17 07:00 15:00 23:00 07:00 15:00 23:00 Intake Total 1650 ml 200 ml 650 ml 680 ml Output Total 1060 ml 1805 ml 790 ml Balance 590 ml 200 ml -1155 ml -110 ml Intake Oral 1200 ml 650 ml 480 ml IV Total 450 ml 200 ml 200 ml Output Urine Total 710 ml 1675 ml 650 ml Chest Tube Drainage Total 350 ml 130 ml 140 ml # Bowel Movements 0 Physical Exam GENERAL: SKIN: Warm and dry. HEAD: Normocephalic. EYES: No scleral icterus. No injection or drainage. NECK: Supple, trachea midline. No JVD or lymphadenopathy. CARDIOVASCULAR: Regular rate and rhythm without murmurs, gallops, or rubs. RESPIRATORY: Breath sounds equal bilaterally. No accessory muscle use. GASTROINTESTINAL: Abdomen soft, non-tender, nondistended. MUSCULOSKELETAL: No cyanosis, or edema. BACK: Nontender without obvious deformity. No CVA tenderness. Laboratory Laboratory Tests Test 12/23/17 04:07 White Blood Count 8.7 TH/MM3 Red Blood Count 2.70 MIL/MM3 Hemoglobin 9.0 GM/DL Hematocrit 25.9 % Mean Corpuscular Volume 95.8 FL Mean Corpuscular Hemoglobin 33.2 PG Mean Corpuscular Hemoglobin Concent 34.7 % Red Cell Distribution Width 13.9 % Platelet Count 95 TH/MM3 Mean Platelet Volume 8.6 FL Neutrophils (%) (Auto) 80.2 % Lymphocytes (%) (Auto) 11.1 % Monocytes (%) (Auto) 8.5 % Eosinophils (%) (Auto) 0.1 % Basophils (%) (Auto) 0.1 % Neutrophils # (Auto) 7.0 TH/MM3 Lymphocytes # (Auto) 1.0 TH/MM3 Monocytes # (Auto) 0.7 TH/MM3 Eosinophils # (Auto) 0.0 TH/MM3 Basophils # (Auto) 0.0 TH/MM3 CBC Comment AUTO DIFF Differential Comment AUTO DIFF CONFIRMED Platelet Estimate LOW Platelet Morphology Comment NORMAL Blood Urea Nitrogen 32 MG/DL Creatinine 1.61 MG/DL Random Glucose 91 MG/DL Calcium Level 7.8 MG/DL Magnesium Level 2.4 MG/DL Sodium Level 142 MEQ/L Potassium Level 4.2 MEQ/L Chloride Level 106 MEQ/L Carbon Dioxide Level 27.0 MEQ/L Anion Gap 9 MEQ/L Estimat Glomerular Filtration Rate 44 ML/MIN Assessment and Plan Problem List: (1) Non-STEMI (non-ST elevated myocardial infarction) ICD Codes: I21.4 - Non-ST elevation (NSTEMI) myocardial infarction Status: Acute (2) HTN (hypertension) ICD Codes: I10 - Essential (primary) hypertension (3) Hepatitis B ICD Codes: B19.10 - Unspecified viral hepatitis B without hepatic coma (4) Hepatitis C ICD Codes: B19.20 - Unspecified viral hepatitis C without hepatic coma (5) CAD (coronary artery disease) ICD Codes: I25.10 - Atherosclerotic heart disease of [place] coronary artery without angina pectoris (6) Hyperlipidemia ICD Codes: E78.5 - Hyperlipidemia, unspecified (7) Tobacco abuse ICD Codes: Z72.0 - Tobacco use Status: Acute (8) S/P CABG (coronary artery bypass graft) ICD Codes: Z95.1 - Presence of aortocoronary bypass graft (9) Renal insufficiency ICD Codes: N28.9 - Disorder of kidney and ureter, unspecified Assessment and Plan 1.) POD #2 cabg - stable, continue aspirin, pravachol and metoprolol Problem Qualifiers (1) HTN (hypertension): Qualified Codes: I10 - Essential (primary) hypertension (2) Hepatitis B: (3) Hepatitis C: (4) CAD (coronary artery disease): Qualified Codes: I25.110 - Atherosclerotic heart disease of [place] coronary artery with unstable angina pectoris (5) Hyperlipidemia: Qualified Codes: E78.5 - Hyperlipidemia, unspecified Alex Shore MD December 23, 2017 19:18
[2017-12-23] MEDS: SENNOSIDES 8.6 MG TAB PO SCH (21:20)
[2017-12-23] MEDS: PRAVASTATIN SOD 80 MG TAB PO SCH (21:21)
[2017-12-24] VITALS (25 sets, daily range): BP systolic 94–111; BP diastolic 51–71; PULSE 61–80; RESP 18–20; TEMP 97.6–100.1; O2SAT 94–97
[2017-12-24] MEDS: INSULIN ASPART SUPPLEMENTAL SCALE SQ SCH ×5 (02:00→21:00)
[2017-12-24] MEDS: SODIUM CHLOR 0.9% 1000 ML INJ 1,000 ML IV SCH (02:55)
[2017-12-24] MEDS: PANTOPRAZOLE SOD 40 MG DELAYED RELEASE TAB PO SCH (04:48)
[2017-12-24] MEDS: AMIODARONE 200 MG TAB PO SCH ×3 (04:48→21:36)
[2017-12-24 04:57] LABS: HEMATOCRIT 25.6 % (39.0-51.0); HEMOGLOBIN 8.8 GM/DL (13.0-17.0); MEAN CELL VOLUME 97.3 FL (80.0-100.0); MEAN CORPUSCULAR HEMOGLOBIN 33.6 PG (27.0-34.0); MEAN CORPUSCULAR HGB CONC 34.5 % (32.0-36.0); MEAN PLATELET VOLUME 8.4 FL (7.0-11.0); PLATELET COUNT 98 TH/MM3 (150-450); RED BLOOD COUNT 2.63 MIL/MM3 (4.50-5.90); RED CELL DISTRIBUTION WIDTH 14.2 % (11.6-17.2); WHITE BLOOD COUNT 8.6 TH/MM3 (4.0-11.0)
[2017-12-24 05:24] LABS: BICARBONATE 27.2 MEQ/L (21.0-32.0); CALCIUM 8.1 MG/DL (8.5-10.1); CREATININE 1.28 MG/DL (0.60-1.30)
[2017-12-24] MEDS: MUPIROCIN 2% OINT 1 APPLIC/GM SYR EACH NARE SCH ×2 (08:34→21:36)
[2017-12-24] MEDS: MAGNESIUM HYDROXIDE SUSP 30 ML CUP PO SCH (08:35)
[2017-12-24] MEDS: POLYETHYLENE GLYCOL 17 GM PKG PO SCH (08:35)
[2017-12-24] MEDS: MULTIVITAMINS/MINERALS THERAPEUTIC TAB PO SCH (08:36)
[2017-12-24] MEDS: ASPIRIN 81 MG CHEW TAB PO SCH (08:36)
[2017-12-24] MEDS: ENTECAVIR 0.5 MG TAB PO SCH (08:36)
[2017-12-24] MEDS: METOPROLOL TARTRATE 25 MG TAB PO SCH ×2 (08:36→21:36)
[2017-12-24] MEDS: FUROSEMIDE 40 MG/4 ML VIAL IV PUSH SCH (08:36)
[2017-12-24] MEDS: CHOLECALCIFEROL (VIT D3) 1000 UNIT TAB PO SCH (08:36)
[2017-12-24] MEDS: TAMSULOSIN HCL 0.4 MG CAP PO SCH (08:36)
[2017-12-24] MEDS: DOCUSATE SODIUM 100 MG CAP PO SCH ×2 (08:37→21:36)
[2017-12-24] MEDS: SODIUM CHLORIDE 0.9% FLUSH 10 ML FLUSH IV FLUSH SCH ×2 (08:37→21:00)
[2017-12-24 12:48] LABS: BACTERIA, URINE OCC /hpf; BILIRUBIN, URINE NEG (NEG); BLOOD, URINE TRACE (NEG); GLUCOSE,URINE NEG (NEG); HYALINE CAST, URINE 2 /lpf (RARE); KETONE, URINE NEG (NEG); MUCUS URINE FEW /lpf (OCC); NITRITE,URINE NEG (NEG); URINE COLOR LIGHT-YELLOW (YELLW/STRAW); URINE LEUKOCYTE ESTERASE MOD (NEG)
--- NOTE | 2017-12-24 13:42 | PD.CONS ---
[facility] Service Urology Consult Requested By Dr. Wall Reason for Consult Urinary retention [facility] Diagnosis: (1) Non-STEMI (non-ST elevated myocardial infarction) ICD Code: I21.4 - Non-ST elevation (NSTEMI) myocardial infarction History of Present Illness 62-year-old gentleman with no prior urologic history who was admitted with chest pain and ended up undergoing coronary artery bypass grafting. Postoperatively the patient has had difficulty voiding necessitating placement of a Ratliff catheter. Patient was recently started on Flomax and a urology consult placed for further recommendations. At the time of consultation the patient reported that he was ambulating and recovering well from his recent cardiac surgery. He denied any problems with voiding prior to his present hospitalization. He denied a history of BPH or other urologic pathology. Review of Systems Constitutional: DENIES: Fever, Chills Genitourinary: DENIES: Hematuria, Dysuria Except as stated in HPI: all other systems reviewed are Neg Past Family Social History Past Medical History Coronary artery disease Hepatitis C Hepatitis B Hypertension Past Surgical History Status post recent coronary artery bypass grafting Reported Medications Refer to EMR Allergies: Coded Allergies: No Known Allergies (Verified Allergy, Unknown, 12/20/17) Active Ordered Medications Refer to EMR Family History Reviewed and noncontributory Social History Smoker one half pack per day 40 years Denies alcohol use since 2003 Physical Exam Vital Signs Date Time Temp Pulse Resp B/P (MAP) Pulse Ox O2 Delivery O2 Flow Rate FiO2 12/24/17 12:00 97.8 63 20 110/68 (82) 95 12/24/17 12:00 95 Room Air 12/24/17 08:10 95 Room Air 12/24/17 08:10 66 12/24/17 08:10 97.6 66 20 108/51 (70) 94 12/24/17 06:00 74 12/24/17 05:00 80 12/24/17 04:00 68 12/24/17 04:00 94 Room Air 12/24/17 04:00 100.1 78 20 111/71 (84) 96 12/24/17 03:00 76 12/24/17 02:00 68 12/24/17 01:00 68 12/24/17 00:00 69 12/24/17 00:00 94 Room Air 12/24/17 00:00 98.5 73 20 97/57 (70) 94 12/23/17 23:00 74 12/23/17 22:00 86 12/23/17 21:54 94 21 12/23/17 21:00 78 12/23/17 20:00 94 Room Air 12/23/17 20:00 77 12/23/17 20:00 100.5 79 22 114/65 (81) 94 12/23/17 19:00 80 12/23/17 18:00 88 12/23/17 17:00 92 12/23/17 16:00 78 12/23/17 15:00 95 Room Air 12/23/17 15:00 74 12/23/17 15:00 98.3 79 20 109/55 (73) 95 12/23/17 14:00 74 Physical Exam GENERAL: This is a well-nourished, well-developed patient, in no apparent distress. SKIN: No rashes, ecchymoses or lesions. Cool and dry. HEAD: Atraumatic. Normocephalic. No temporal or scalp tenderness. EYES: Pupils equal round and reactive. Extraocular motions intact. No scleral icterus. No injection or drainage. ENT: Nose without bleeding, purulent drainage or septal hematoma. Throat without erythema, tonsillar hypertrophy or exudate. Uvula midline. Airway patent. NECK: Trachea midline. No JVD or lymphadenopathy. Supple, nontender, no meningeal signs. GASTROINTESTINAL: Abdomen soft, non-tender, nondistended. No hepato-splenomegaly , or palpable masses. No guarding. GENITOURINARY: Indwelling Ratliff draining clear yellow urine MUSCULOSKELETAL: Extremities without clubbing, cyanosis, or edema. No joint tenderness, effusion, or edema noted. No calf tenderness. Negative Homans sign bilaterally. NEUROLOGICAL: Awake and alert. Cranial nerves II through XII intact. Motor and sensory grossly within normal limits. Normal speech. Laboratory Tests Test 12/24/17 04:44 12/24/17 11:40 White Blood Count 8.6 Red Blood Count 2.63 Hemoglobin 8.8 Hematocrit 25.6 Mean Corpuscular Volume 97.3 Mean Corpuscular Hemoglobin 33.6 Mean Corpuscular Hemoglobin Concent 34.5 Red Cell Distribution Width 14.2 Platelet Count 98 Mean Platelet Volume 8.4 Blood Urea Nitrogen 26 Creatinine 1.28 Random Glucose 97 Calcium Level 8.1 Sodium Level 137 Potassium Level 4.3 Chloride Level 103 Carbon Dioxide Level 27.2 Anion Gap 7 Estimat Glomerular Filtration Rate 57 Urine Color LIGHT-YELLOW Urine Turbidity CLEAR Urine pH 6.0 Urine Specific [place] 1.007 Urine Protein NEG Urine Glucose (UA) NEG Urine Ketones NEG Urine Occult Blood TRACE Urine Nitrite NEG Urine Bilirubin NEG Urine Urobilinogen LESS THAN 2.0 Urine Leukocyte Esterase MOD Urine RBC 2 Urine WBC 5 Urine Bacteria OCC Urine Hyaline Casts 2 Urine Mucus FEW Microscopic Urinalysis Comment CATH-CULTURE IND Date/Time Source Procedure Growth Status 12/24/17 11:40 Urine Catheterized Urine Urine Culture Pending Received Result Diagram: 12/24/17 0444 12/24/17 0444 Imaging Last Impressions Chest X-Ray 12/22/17 0500 Signed Impressions: Service Date/Time: Friday, December 22, 2017 06:20 - CONCLUSION: 1. Status post extubation. 2. Interval improvement in pulmonary edema. Leonard Guajardo MD Carotid Artery Ultrasound 12/20/17 0000 Signed Impressions: Service Date/Time: December 20:45 - CONCLUSION: No hemodynamically significant stenosis in either carotid artery. Chacho Ott MD Assessment and Plan Assessment and Plan Urologic impression: Urinary retention of likely transient nature Recommendations: 1. Continue with tamsulosin 0.4 mg by mouth daily 2. DC Ratliff in 48-72 hours for repeat voiding trial 3. If patient fails repeat voiding trial then replace Ratliff and arrange for patient to follow-up at my office for cystoscopic evaluation to be performed as an outpatient [id number]. Sd Birmingham MD December 24, 2017 13:42
--- NOTE | 2017-12-24 16:35 | PD.CAR.PN ---
CVT Progress Note Subjective/Hospital Course: Called to see this 62yo male who is admitted with NSTEMI. He underwent LHC this evening and found to have left main and 3 vessel CAD. He has renal insufficiency with Cr=1.6 and h/o hepatitis B and C. 12/22/17 Doing well s/p CABG x 6. no complaints 12/23/17 Had some urinary retention last night. Soto placed and started on Flomax. Voiding trial today. 12/24 appreciate urology consult will attempt removal of cath on sun, UA noted + bacteria add rocephin will need SNF placement Objective: GENERAL: A&O x 3 SKIN: Warm and dry. prevena dressing to chest , incision intact both evh sites HEAD: Normocephalic. EYES: No scleral icterus. No injection or drainage. NECK: Supple, trachea midline. No JVD or lymphadenopathy. CARDIOVASCULAR: Regular rate and rhythm without murmurs, gallops, or rubs. RESPIRATORY: Breath sounds equal bilaterally. No accessory muscle use. coarse bilateral breath sounds GASTROINTESTINAL: Abdomen soft, non-tender, nondistended. MUSCULOSKELETAL: No cyanosis, or edema. BACK: Nontender without obvious deformity. No CVA tenderness. Vital Signs Date Time Temp Pulse Resp B/P (MAP) Pulse Ox O2 Delivery O2 Flow Rate FiO2 12/24/17 14:00 72 12/24/17 13:00 72 12/24/17 12:00 97.8 63 20 110/68 (82) 95 12/24/17 12:00 63 12/24/17 12:00 95 Room Air 12/24/17 11:00 68 12/24/17 10:13 95 21 12/24/17 10:00 68 12/24/17 09:00 76 12/24/17 08:10 95 Room Air 12/24/17 08:10 66 12/24/17 08:10 97.6 66 20 108/51 (70) 94 12/24/17 06:00 74 12/24/17 05:00 80 12/24/17 04:00 68 12/24/17 04:00 94 Room Air 12/24/17 04:00 100.1 78 20 111/71 (84) 96 12/24/17 03:00 76 12/24/17 02:00 68 12/24/17 01:00 68 12/24/17 00:00 69 12/24/17 00:00 94 Room Air 12/24/17 00:00 98.5 73 20 97/57 (70) 94 12/23/17 23:00 74 12/23/17 22:00 86 12/23/17 21:54 94 21 12/23/17 21:00 78 12/23/17 20:00 94 Room Air 12/23/17 20:00 77 12/23/17 20:00 100.5 79 22 114/65 (81) 94 12/23/17 19:00 80 12/23/17 18:00 88 12/23/17 17:00 92 Labs: Laboratory Tests Test 12/24/17 04:44 12/24/17 11:40 White Blood Count 8.6 TH/MM3 (4.0-11.0) Red Blood Count 2.63 MIL/MM3 (4.50-5.90) Hemoglobin 8.8 GM/DL (13.0-17.0) Hematocrit 25.6 % (39.0-51.0) Mean Corpuscular Volume 97.3 FL (80.0-100.0) Mean Corpuscular Hemoglobin 33.6 PG (27.0-34.0) Mean Corpuscular Hemoglobin Concent 34.5 % (32.0-36.0) Red Cell Distribution Width 14.2 % (11.6-17.2) Platelet Count 98 TH/MM3 (150-450) Mean Platelet Volume 8.4 FL (7.0-11.0) Blood Urea Nitrogen 26 MG/DL (7-18) Creatinine 1.28 MG/DL (0.60-1.30) Random Glucose 97 MG/DL (74-106) Calcium Level 8.1 MG/DL (8.5-10.1) Sodium Level 137 MEQ/L (136-145) Potassium Level 4.3 MEQ/L (3.5-5.1) Chloride Level 103 MEQ/L (98-107) Carbon Dioxide Level 27.2 MEQ/L (21.0-32.0) Anion Gap 7 MEQ/L (5-15) Estimat Glomerular Filtration Rate 57 ML/MIN (>89) Urine Color LIGHT-YELLOW (YELLW/STRAW) Urine Turbidity CLEAR (CLEAR) Urine pH 6.0 (5.0-8.5) Urine Specific [place] 1.007 (1.002-1.035) Urine Protein NEG mg/dL (NEG-TRACE) Urine Glucose (UA) NEG mg/dL (NEG) Urine Ketones NEG mg/dL (NEG) Urine Occult Blood TRACE (NEG) Urine Nitrite NEG (NEG) Urine Bilirubin NEG (NEG) Urine Urobilinogen LESS THAN 2.0 MG/DL (LESS Urine Leukocyte Esterase MOD (NEG) Urine RBC 2 /hpf (0-3) Urine WBC 5 /hpf (0-5) Urine Bacteria OCC /hpf (NONE) Urine Hyaline Casts 2 /lpf (RARE) Urine Mucus FEW /lpf (OCC) Microscopic Urinalysis Comment CATH-CULTURE IND Result Diagram: 12/24/1744312/24/17443 Telemetry: NSR (1) Non-STEMI (non-ST elevated myocardial infarction) (2) HTN (hypertension) (3) Hepatitis B (4) Hepatitis C (5) CAD (coronary artery disease) (6) Hyperlipidemia (7) Tobacco abuse Plan: smoking cessation (8) S/P CABG (coronary artery bypass graft) Plan: ASA, statin , BB , amiodarone pulm toileting OOB ambulate (9) Renal insufficiency (10) Urinary retention Plan: + bacteria in urine, add rocephin continue flomax , re-eval for removal of soto cath Problem Qualifiers (1) HTN (hypertension): Qualified Codes: I10 - Essential (primary) hypertension (2) Hepatitis B: (3) Hepatitis C: (4) CAD (coronary artery disease): Qualified Codes: I25.110 - Atherosclerotic heart disease of [place] coronary artery with unstable angina pectoris (5) Hyperlipidemia: Qualified Codes: E78.5 - Hyperlipidemia, unspecified Sabrina Wall December 24, 2017 16:35
[2017-12-24] MEDS ORDERED: cefTRIAXone INJ 1,000 MG in SODIUM CHLORIDE 0.9% INJ 100 ML IV SCH (17:00)
[2017-12-24] MEDS: FERROUS SULFATE 325 MG (65 MG ELEMENTAL IRON) TAB PO SCH (18:07)
--- NOTE | 2017-12-24 19:05 | PD.CARD.PN ---
Subjective Subjective Remarks sitting in chair in nad Objective Medications Current Medications Medications (Trade) Dose Ordered Sig/Kathe Route Start Time Stop Time Status Last Admin (Narcan Inj) 0.4 mg UNSCH PRN IV PUSH 12/20/17 14:00 (Senokot) 17.2 mg Q12H PRN PO 12/20/17 14:00 (Lactulose Liq) 30 ml DAILY PRN PO 12/20/17 14:00 (Vitamin D3) 2,000 units DAILY PO 12/21/17 09:00 12/24/17 08:36 (Baraclude) 0.5 mg DAILY PO 12/21/17 09:00 12/24/17 08:36 (Lopressor) 25 mg Q12HR PO 12/20/17 21:00 12/24/17 08:36 (Pravachol) 80 mg HS PO 12/20/17 21:00 12/23/17 21:21 (Bactroban Nasal 2% Oint) 1 applic BID EACH NARE 12/21/17 09:00 12/26/17 08:59 12/24/17 08:34 (NS Flush) 2 ml BID IV FLUSH 12/21/17 21:00 12/24/17 08:37 (NS Flush) 2 ml UNSCH PRN IV FLUSH 12/21/17 15:00 (Aspirin Chew) 81 mg DAILY PO 12/22/17 09:00 12/24/17 08:36 (Protonix) 40 mg DAILY@06 PO 12/22/17 06:00 12/24/17 04:48 (Cordarone) 400 mg Q8HR PO 12/21/17 22:00 12/24/17 13:43 (Percocet 5-325 Mg) 1 tab Q3H PRN PO 12/21/17 15:00 (Zofran Inj) 4 mg Q6H PRN IV PUSH 12/21/17 15:00 (Apresoline Inj) 10 mg Q4H PRN IV PUSH 12/21/17 15:00 12/22/17 17:20 (D50w (Vial) Inj) 50 ml UNSCH PRN IV PUSH 12/21/17 15:00 (Duoneb Neb) 1 ampule Q2HR NEB PRN NEB 12/21/17 15:00 (Colace) 100 mg BID PO 12/22/17 21:00 12/24/17 08:37 (Theragran M Tab) 1 tab DAILY PO 12/23/17 09:00 12/24/17 08:36 (Milk Of Magnesia Liq) 30 ml DAILY PO 12/23/17 09:00 12/24/17 08:35 (Dulcolax Supp) 10 mg UNSCH PRN RECTAL 12/22/17 11:00 (Miralax) 17 gm DAILY PO 12/23/17 09:00 12/24/17 08:35 (Senokot) 8.6 mg HS PO 12/22/17 21:00 12/23/17 21:20 (Glucagon Inj) 1 mg UNSCH PRN OTHER 12/22/17 11:00 (Fleets Enema (Adult)) 133 ml UNSCH PRN RECTAL 12/22/17 11:30 (Flomax) 0.4 mg DAILY PO 12/22/17 19:05 12/24/17 08:36 Acetaminophen 100 ml @ 400 mls/hr Q8H PRN IV 12/22/17 20:45 12/22/17 21:54 (NovoLOG SUPPLEMENTAL SCALE) 1 0800,1200,1700,2100 SQ 12/24/17 12:30 12/24/17 12:19 Ceftriaxone Sodium 1000 mg/ Sodium Chloride 100 ml @ 200 mls/hr Q24H IV 12/24/17 17:00 12/24/17 18:07 (Ferrous Sulfate) 325 mg BID@12,17 PO 12/24/17 17:00 12/24/17 18:07 (Lasix) 40 mg DAILY PO 12/25/17 09:00 (KCl) 20 meq DAILY PO 12/25/17 09:00 Vital Signs / I&O Vital Signs Date Time Temp Pulse Resp B/P (MAP) Pulse Ox O2 Delivery O2 Flow Rate FiO2 12/24/17 18:00 70 12/24/17 17:00 78 12/24/17 16:00 72 12/24/17 15:30 96 Room Air 12/24/17 15:30 61 12/24/17 15:30 99.0 61 18 101/60 (74) 96 12/24/17 15:00 74 12/24/17 14:00 72 12/24/17 13:00 72 12/24/17 12:00 97.8 63 20 110/68 (82) 95 12/24/17 12:00 63 12/24/17 12:00 95 Room Air 12/24/17 11:00 68 12/24/17 10:13 95 21 12/24/17 10:00 68 12/24/17 09:00 76 12/24/17 08:10 95 Room Air 12/24/17 08:10 66 12/24/17 08:10 97.6 66 20 108/51 (70) 94 12/24/17 06:00 74 12/24/17 05:00 80 12/24/17 04:00 68 12/24/17 04:00 94 Room Air 12/24/17 04:00 100.1 78 20 111/71 (84) 96 12/24/17 03:00 76 12/24/17 02:00 68 12/24/17 01:00 68 12/24/17 00:00 69 12/24/17 00:00 94 Room Air 12/24/17 00:00 98.5 73 20 97/57 (70) 94 12/23/17 23:00 74 12/23/17 22:00 86 12/23/17 21:54 94 21 12/23/17 21:00 78 12/23/17 20:00 94 Room Air 12/23/17 20:00 77 12/23/17 20:00 100.5 79 22 114/65 (81) 94 I/O 12/23/17 12/23/17 12/23/17 12/24/17 12/24/17 12/24/17 07:00 15:00 23:00 07:00 15:00 23:00 Intake Total 680 ml 720 ml 60 ml 1260 ml Output Total 790 ml 750 ml 1050 ml 2850 ml Balance -110 ml -30 ml -990 ml -1590 ml Intake Oral 480 ml 720 ml 60 ml 1260 ml IV Total 200 ml Output Urine Total 650 ml 750 ml 1050 ml 2850 ml Chest Tube Drainage Total 140 ml # Bowel Movements 0 0 Physical Exam GENERAL: SKIN: Warm and dry. HEAD: Normocephalic. EYES: No scleral icterus. No injection or drainage. NECK: Supple, trachea midline. No JVD or lymphadenopathy. CARDIOVASCULAR: Regular rate and rhythm without murmurs, gallops, or rubs. RESPIRATORY: Breath sounds equal bilaterally. No accessory muscle use. GASTROINTESTINAL: Abdomen soft, non-tender, nondistended. MUSCULOSKELETAL: No cyanosis, or edema. BACK: Nontender without obvious deformity. No CVA tenderness. Laboratory Laboratory Tests Test 12/24/17 04:44 12/24/17 11:40 White Blood Count 8.6 TH/MM3 Red Blood Count 2.63 MIL/MM3 Hemoglobin 8.8 GM/DL Hematocrit 25.6 % Mean Corpuscular Volume 97.3 FL Mean Corpuscular Hemoglobin 33.6 PG Mean Corpuscular Hemoglobin Concent 34.5 % Red Cell Distribution Width 14.2 % Platelet Count 98 TH/MM3 Mean Platelet Volume 8.4 FL Blood Urea Nitrogen 26 MG/DL Creatinine 1.28 MG/DL Random Glucose 97 MG/DL Calcium Level 8.1 MG/DL Sodium Level 137 MEQ/L Potassium Level 4.3 MEQ/L Chloride Level 103 MEQ/L Carbon Dioxide Level 27.2 MEQ/L Anion Gap 7 MEQ/L Estimat Glomerular Filtration Rate 57 ML/MIN Urine Color LIGHT-YELLOW Urine Turbidity CLEAR Urine pH 6.0 Urine Specific [place] 1.007 Urine Protein NEG mg/dL Urine Glucose (UA) NEG mg/dL Urine Ketones NEG mg/dL Urine Occult Blood TRACE Urine Nitrite NEG Urine Bilirubin NEG Urine Urobilinogen LESS THAN 2.0 MG/DL Urine Leukocyte Esterase MOD Urine RBC 2 /hpf Urine WBC 5 /hpf Urine Bacteria OCC /hpf Urine Hyaline Casts 2 /lpf Urine Mucus FEW /lpf Microscopic Urinalysis Comment CATH-CULTURE IND Assessment and Plan Problem List: (1) Non-STEMI (non-ST elevated myocardial infarction) ICD Codes: I21.4 - Non-ST elevation (NSTEMI) myocardial infarction Status: Acute (2) HTN (hypertension) ICD Codes: I10 - Essential (primary) hypertension (3) Hepatitis B ICD Codes: B19.10 - Unspecified viral hepatitis B without hepatic coma (4) Hepatitis C ICD Codes: B19.20 - Unspecified viral hepatitis C without hepatic coma (5) CAD (coronary artery disease) ICD Codes: I25.10 - Atherosclerotic heart disease of [place] coronary artery without angina pectoris (6) Hyperlipidemia ICD Codes: E78.5 - Hyperlipidemia, unspecified (7) Tobacco abuse ICD Codes: Z72.0 - Tobacco use Status: Acute (8) S/P CABG (coronary artery bypass graft) ICD Codes: Z95.1 - Presence of aortocoronary bypass graft (9) Renal insufficiency ICD Codes: N28.9 - Disorder of kidney and ureter, unspecified (10) Urinary retention ICD Codes: R33.9 - Retention of urine, unspecified Assessment and Plan 1.) POD # 3 cabg - stable, continue aspirin, pravachol and metoprolol, chest tubes out Problem Qualifiers (1) HTN (hypertension): Qualified Codes: I10 - Essential (primary) hypertension (2) Hepatitis B: (3) Hepatitis C: (4) CAD (coronary artery disease): Qualified Codes: I25.110 - Atherosclerotic heart disease of [place] coronary artery with unstable angina pectoris (5) Hyperlipidemia: Qualified Codes: E78.5 - Hyperlipidemia, unspecified Alex Shore MD December 24, 2017 19:05
[2017-12-24] MEDS ORDERED: ATORVASTATIN 40 MG TAB PO SCH (21:00)
[2017-12-24] MEDS: SENNOSIDES 8.6 MG TAB PO SCH (21:36)
[2017-12-24] MEDS: PRAVASTATIN SOD 80 MG TAB PO SCH (21:36)
[2017-12-25] VITALS (10 sets, daily range): BP systolic 94–107; BP diastolic 54–67; PULSE 58–69; RESP 16–20; TEMP 98.6–99; O2SAT 95–98
[2017-12-25] MEDS: AMIODARONE 200 MG TAB PO SCH ×2 (05:48→14:44)
[2017-12-25] MEDS: PANTOPRAZOLE SOD 40 MG DELAYED RELEASE TAB PO SCH (05:48)
[2017-12-25] MEDS: INSULIN ASPART SUPPLEMENTAL SCALE SQ SCH ×2 (08:00→12:00)
[2017-12-25] MEDS: ASPIRIN 81 MG CHEW TAB PO SCH (08:28)
[2017-12-25] MEDS: MUPIROCIN 2% OINT 1 APPLIC/GM SYR EACH NARE SCH (08:28)
[2017-12-25] MEDS: CHOLECALCIFEROL (VIT D3) 1000 UNIT TAB PO SCH (08:28)
[2017-12-25] MEDS: TAMSULOSIN HCL 0.4 MG CAP PO SCH (08:29)
[2017-12-25] MEDS: ENTECAVIR 0.5 MG TAB PO SCH (08:29)
[2017-12-25] MEDS: DOCUSATE SODIUM 100 MG CAP PO SCH (08:29)
[2017-12-25] MEDS: SODIUM CHLORIDE 0.9% FLUSH 10 ML FLUSH IV FLUSH SCH (08:30)
[2017-12-25] MEDS: METOPROLOL TARTRATE 25 MG TAB PO SCH (08:30)
[2017-12-25] MEDS: MULTIVITAMINS/MINERALS THERAPEUTIC TAB PO SCH (08:30)
[2017-12-25] MEDS: MAGNESIUM HYDROXIDE SUSP 30 ML CUP PO SCH (08:30)
[2017-12-25] MEDS: POLYETHYLENE GLYCOL 17 GM PKG PO SCH (08:31)
[2017-12-25] MEDS ORDERED: FUROSEMIDE 40 MG TAB PO SCH (09:00)
[2017-12-25] MEDS ORDERED: POTASSIUM CHLORIDE 20 MEQ CONTROLLED RELEASE TAB PO SCH (09:00)
[2017-12-25] MEDS ORDERED: DOCU1CAP39 PO (11:00)
[2017-12-25] MEDS ORDERED: TRAM50TA PO (11:00)
[2017-12-25] MEDS ORDERED: FERR325T20 PO (11:00)
[2017-12-25] MEDS ORDERED: TYLE325T PO (11:00)
[2017-12-25] MEDS ORDERED: THERM PO (11:00)
[2017-12-25] MEDS ORDERED: ASPI81 PO (11:00)
[2017-12-25] MEDS ORDERED: CEFU1TAB18 PO (11:00)
[2017-12-25] MEDS ORDERED: TAMS5CAP PO (11:00)
[2017-12-25] MEDS ORDERED: AMIO200T PO ×2 (11:00→11:03)
--- NOTE | 2017-12-25 12:00 | RSPPFT ---
DATE OF PROCEDURE: 12/21/17 COMMENTS: Spirometry with FVC of 3.2 predicted 4.4, FEV1 of 2.0 predicted 3.5, FEV1/FVC ratio 53% predicted 80%. IMPRESSION: On the basis of the above, patient has an obstructive lung defect. Post-bronchodilator values and lung volumes have not been measured.
--- NOTE | 2017-12-25 13:45 | PD.CARD.PN ---
Subjective Subjective Remarks sitting in chair in nad Objective Medications Current Medications Medications (Trade) Dose Ordered Sig/Kathe Route Start Time Stop Time Status Last Admin (Narcan Inj) 0.4 mg UNSCH PRN IV PUSH 12/20/17 14:00 (Senokot) 17.2 mg Q12H PRN PO 12/20/17 14:00 (Lactulose Liq) 30 ml DAILY PRN PO 12/20/17 14:00 (Vitamin D3) 2,000 units DAILY PO 12/21/17 09:00 12/25/17 08:28 (Baraclude) 0.5 mg DAILY PO 12/21/17 09:00 12/25/17 08:29 (Lopressor) 25 mg Q12HR PO 12/20/17 21:00 12/25/17 08:30 (Pravachol) 80 mg HS PO 12/20/17 21:00 12/24/17 21:36 (Bactroban Nasal 2% Oint) 1 applic BID EACH NARE 12/21/17 09:00 12/26/17 08:59 12/25/17 08:28 (NS Flush) 2 ml BID IV FLUSH 12/21/17 21:00 12/25/17 08:30 (NS Flush) 2 ml UNSCH PRN IV FLUSH 12/21/17 15:00 (Aspirin Chew) 81 mg DAILY PO 12/22/17 09:00 12/25/17 08:28 (Protonix) 40 mg DAILY@06 PO 12/22/17 06:00 12/25/17 05:48 (Cordarone) 400 mg Q8HR PO 12/21/17 22:00 12/25/17 05:48 (Percocet 5-325 Mg) 1 tab Q3H PRN PO 12/21/17 15:00 (Zofran Inj) 4 mg Q6H PRN IV PUSH 12/21/17 15:00 (Apresoline Inj) 10 mg Q4H PRN IV PUSH 12/21/17 15:00 12/22/17 17:20 (D50w (Vial) Inj) 50 ml UNSCH PRN IV PUSH 12/21/17 15:00 (Duoneb Neb) 1 ampule Q2HR NEB PRN NEB 12/21/17 15:00 (Colace) 100 mg BID PO 12/22/17 21:00 12/25/17 08:29 (Theragran M Tab) 1 tab DAILY PO 12/23/17 09:00 12/25/17 08:30 (Milk Of Magnesia Liq) 30 ml DAILY PO 12/23/17 09:00 12/24/17 08:35 (Dulcolax Supp) 10 mg UNSCH PRN RECTAL 12/22/17 11:00 (Miralax) 17 gm DAILY PO 12/23/17 09:00 12/24/17 08:35 (Senokot) 8.6 mg HS PO 12/22/17 21:00 12/24/17 21:36 (Glucagon Inj) 1 mg UNSCH PRN OTHER 12/22/17 11:00 (Fleets Enema (Adult)) 133 ml UNSCH PRN RECTAL 12/22/17 11:30 (Flomax) 0.4 mg DAILY PO 12/22/17 19:05 12/25/17 08:29 Acetaminophen 100 ml @ 400 mls/hr Q8H PRN IV 12/22/17 20:45 12/22/17 21:54 (NovoLOG SUPPLEMENTAL SCALE) 1 0800,1200,1700,2100 SQ 12/24/17 12:30 12/24/17 21:00 Ceftriaxone Sodium 1000 mg/ Sodium Chloride 100 ml @ 200 mls/hr Q24H IV 12/24/17 17:00 12/24/17 18:07 (Ferrous Sulfate) 325 mg BID@12,17 PO 12/24/17 17:00 12/24/17 18:07 (Lasix) 40 mg DAILY PO 12/25/17 09:00 12/25/17 08:30 (KCl) 20 meq DAILY PO 12/25/17 09:00 12/25/17 08:29 Vital Signs / I&O Vital Signs Date Time Temp Pulse Resp B/P (MAP) Pulse Ox O2 Delivery O2 Flow Rate FiO2 12/25/17 12:30 99.0 64 16 94/55 (68) 97 12/25/17 12:30 58 12/25/17 12:30 97 Room Air 12/25/17 08:11 98 21 12/25/17 08:00 63 12/25/17 08:00 97 Room Air 12/25/17 08:00 98.6 63 18 107/67 (80) 97 12/25/17 06:00 63 12/25/17 05:00 62 12/25/17 04:00 64 12/25/17 03:00 99.0 69 20 97/54 (68) 95 12/25/17 03:00 95 Room Air 12/25/17 03:00 69 12/25/17 02:00 64 12/25/17 01:00 68 12/25/17 00:00 66 12/24/17 23:00 95 Room Air 12/24/17 23:00 99.3 67 20 94/52 (66) 95 12/24/17 23:00 67 12/24/17 22:00 70 12/24/17 21:00 74 12/24/17 20:08 21 12/24/17 20:00 70 12/24/17 19:00 72 12/24/17 19:00 99.3 72 20 102/64 (77) 97 12/24/17 19:00 97 Room Air 12/24/17 18:00 70 12/24/17 17:00 78 12/24/17 16:00 72 12/24/17 15:30 96 Room Air 12/24/17 15:30 61 12/24/17 15:30 99.0 61 18 101/60 (74) 96 12/24/17 15:00 74 12/24/17 14:00 72 I/O 12/24/17 12/24/17 12/24/17 12/25/17 12/25/17 12/25/17 07:00 15:00 23:00 07:00 15:00 23:00 Intake Total 60 ml 2260 ml 240 ml Output Total 1050 ml 2850 ml 1325 ml Balance -990 ml -590 ml -1085 ml Intake Oral 60 ml 1260 ml 240 ml IV Total 1000 ml Output Urine Total 1050 ml 2850 ml 1325 ml # Bowel Movements 0 0 Physical Exam GENERAL: SKIN: Warm and dry. HEAD: Normocephalic. EYES: No scleral icterus. No injection or drainage. NECK: Supple, trachea midline. No JVD or lymphadenopathy. CARDIOVASCULAR: Regular rate and rhythm without murmurs, gallops, or rubs. RESPIRATORY: Breath sounds equal bilaterally. No accessory muscle use. GASTROINTESTINAL: Abdomen soft, non-tender, nondistended. MUSCULOSKELETAL: No cyanosis, or edema. BACK: Nontender without obvious deformity. No CVA tenderness. Assessment and Plan Problem List: (1) Non-STEMI (non-ST elevated myocardial infarction) ICD Codes: I21.4 - Non-ST elevation (NSTEMI) myocardial infarction Status: Acute (2) HTN (hypertension) ICD Codes: I10 - Essential (primary) hypertension (3) Hepatitis B ICD Codes: B19.10 - Unspecified viral hepatitis B without hepatic coma (4) Hepatitis C ICD Codes: B19.20 - Unspecified viral hepatitis C without hepatic coma (5) CAD (coronary artery disease) ICD Codes: I25.10 - Atherosclerotic heart disease of [place] coronary artery without angina pectoris (6) Hyperlipidemia ICD Codes: E78.5 - Hyperlipidemia, unspecified (7) Tobacco abuse ICD Codes: Z72.0 - Tobacco use Status: Acute (8) S/P CABG (coronary artery bypass graft) ICD Codes: Z95.1 - Presence of aortocoronary bypass graft (9) Renal insufficiency ICD Codes: N28.9 - Disorder of kidney and ureter, unspecified (10) Urinary retention ICD Codes: R33.9 - Retention of urine, unspecified Assessment and Plan 1.) POD # 4 cabg - stable, continue aspirin, pravachol and metoprolol, chest tubes out, f[facility] Problem Qualifiers (1) HTN (hypertension): Qualified Codes: I10 - Essential (primary) hypertension (2) Hepatitis B: (3) Hepatitis C: (4) CAD (coronary artery disease): Qualified Codes: I25.110 - Atherosclerotic heart disease of [place] coronary artery with unstable angina pectoris (5) Hyperlipidemia: Qualified Codes: E78.5 - Hyperlipidemia, unspecified Alex Shore MD December 25, 2017 13:45
[2017-12-25] MEDS: FERROUS SULFATE 325 MG (65 MG ELEMENTAL IRON) TAB PO SCH (14:45)
== END 2017-12-25 16:05 | DRG 234 ==
LOC: NEPC 09:47 → NEDA 13:20 → HCVI 18:55 → HCPC 12-23 11:10
PROVIDERS: ADMIT Thoracic Surgery (Cardiothoracic Vascular Surgery); ATTEND Thoracic Surgery (Cardiothoracic Vascular Surgery)
PROC: B2111ZZ Fluoroscopy of Multiple Coronary Arteries using Low Osmolar Contrast (ICD-10-PCS; 2017-12-20)
PROC: B2151ZZ Fluoroscopy of Left Heart using Low Osmolar Contrast (ICD-10-PCS; 2017-12-20)
PROC: 4A023N8 Measurement of Cardiac Sampling and Pressure, Bilateral, Percutaneous Approach (ICD-10-PCS; principal; 2017-12-20 17:00)
PROC: 021309W Bypass Coronary Artery, Four or More Arteries from Aorta with Autologous Venous Tissue, Open Approach (ICD-10-PCS; 2017-12-21)
PROC: 06BQ4ZZ Excision of Left Saphenous Vein, Percutaneous Endoscopic Approach (ICD-10-PCS; 2017-12-21)
PROC: 06BP4ZZ Excision of Right Saphenous Vein, Percutaneous Endoscopic Approach (ICD-10-PCS; 2017-12-21)
PROC: 5A1221Z Performance of Cardiac Output, Continuous (ICD-10-PCS; 2017-12-21)
PROC: 02100Z9 Bypass Coronary Artery, One Artery from Left Internal Mammary, Open Approach (ICD-10-PCS; 2017-12-21 08:12)
PROC: 0T9B70Z Drainage of Bladder with Drainage Device, Via Natural or Artificial Opening (ICD-10-PCS; 2017-12-24)
DX: I21.4 Non-ST elevation (NSTEMI) myocardial infarction (principal); N17.9 Acute kidney failure, unspecified; I13.0 Hypertensive heart and chronic kidney disease with heart failure and stage 1 through stage 4 chronic kidney disease, or unspecified chronic kidney disease; B19.10 Unspecified viral hepatitis B without hepatic coma; I27.20 Pulmonary hypertension, unspecified; I50.9 Heart failure, unspecified; E78.5 Hyperlipidemia, unspecified; K21.9 Gastro-esophageal reflux disease without esophagitis; N18.2 Chronic kidney disease, stage 2 (mild); B19.20 Unspecified viral hepatitis C without hepatic coma; F17.210 Nicotine dependence, cigarettes, uncomplicated; R23.3 Spontaneous ecchymoses; R21 Rash and other nonspecific skin eruption; R33.9 Retention of urine, unspecified; R82.71 Bacteriuria; D64.9 Anemia, unspecified; I25.10 Atherosclerotic heart disease of native coronary artery without angina pectoris; I25.2 Old myocardial infarction; Z95.5 Presence of coronary angioplasty implant and graft
CPT/HCPCS: 71045; 76937; 80048; 80053; 80061; 81001; 82550; 82552; 82948; 83735; 83880; 84484; 85025; 85027; 85610; 85730; 86850; 86900; 86901; 86920; 87086; 87641; 93005; 93306; 93460; 93880; 94002; 94010; 94150; 94640; 94664; 94667; 99285; C1769; C1893; J0131; J0360; J0690; J0696; J1644; J1815; J1817; J1940; J2150; J2250; J2370; J2440; J2710; J2720; J2930; J3010; J3370; J3475; J3480; J7030; J7050; J7120; P9045; P9047; Q9967